=== PATIENT | female | born 1990 | race Caucasian/White ===

== ENCOUNTER 2016-10-03 00:25 | Inpatient (IN) | payer BC, MEDICAID, OTHER ==
[~2016-10-03] VITALS: Ht 162.6 cm; Wt 107.5 kg
[~2016-10-03 00:25] MED LIST: IBUP-1542 PO; LANT3I SC; NOVO3I SC
[2016-10-03 00:32] VITALS: Ht 162.6 cm; Wt 107.5 kg
[2016-10-03] MEDS ORDERED: SOD CHLORIDE 0.9% 1,000 ML IV STA (01:48)
[2016-10-03] MEDS ORDERED: ACETAMINOPHEN 325 MG TAB PO ONE ×2 (02:00→20:30)
--- NOTE | 2016-10-03 02:48 | ERD ---
ER Documentation Chief Complaint Date/Time DATE: 10/03/16 TIME: 02:46 Chief Complaint abscess left inguinal area HPI 26-year-old female presents here in emergency department for complaints of a possible abscess in the left inguinal area, but had it for the last week, it got more swollen and was able to drain pustular discharge today. Patient is complaining of left lower quadrant pain where the abscess is, throbbing pain, succession scale, is worse with touching the area. Patient started to have fever today. Patient also has had irregular period, had 2 menstruation in July , has never had a menstruation afterwards, today, she passed out some tissue. She does not know she is . Patient denies any hematuria or dysuria. Patient states that she has light vaginal bleeding today, has not soaked any pads. ROS All systems reviewed and are negative except as per history of present illness. Medications Home Meds Active Scripts Ibuprofen* (Motrin*) 600 Mg Tab, 600 MG PO Q6, #30 TAB Prov:LEONEL JOHNSON PA-C 09/23/15 Reported Medications Insulin Aspart* (Novolog Insulin Pen*) 100 Unit/Ml Soln, 10 UNIT SC TID AC, EA 03/24/16 Insulin Glargine* (Lantus*) 100 Unit/Ml Soln, 15 UNIT SC QHS, #1 VIAL 03/24/16 Allergies Allergies: Coded Allergies: No Known Drug Allergies (Verified Allergy, Unknown, 03/24/16) PMhx/Soc History of Surgery: No Anesthesia Reaction: No Hx Neurological Disorder: No Hx Respiratory Disorders: No Hx Cardiac Disorders: No Hx Psychiatric Problems: No Hx Miscellaneous Medical Probl: Yes (dm) Hx Alcohol Use: No Hx Substance Use: No Hx Tobacco Use: No Smoking Status: Never smoker FmHx Family History: No coronary disease, No diabetes, No other Physical Exam Vitals Vital Signs Date Time Temp Pulse Resp B/P Pulse Ox O2 Delivery O2 Flow Rate FiO2 10/03/16 05:08 99.6 96 16 113/55 98 Room Air 10/03/16 00:32 101.3 127 20 125/63 97 Physical Exam GENERAL: The patient is well developed and appropriate for usual state of health, in no apparent distress. CHEST: Clear to auscultation bilaterally. There are no rales, wheezes or rhonchi. HEART: Regular rate and rhythm. No murmurs, clicks, rubs or gallops. No S3 or S4. ABDOMEN: Soft, nontender and nondistended. Good bowel sounds. No rebound or guarding. No gross peritonitis. No gross organomegaly or masses. No Allen sign or McBurney point tenderness. BACK: No midline or flank tenderness. EXTREMITIES: Equal pulses bilaterally. There is no peripheral clubbing, cyanosis or edema. No focal swelling or erythema. Full range of motion. Grossly neurovascularly intact. NEURO: Alert and oriented. Cranial nerves 2-12 intact. Motor strength in all 4 extremities with 5/5 strength. Sensation grossly intact. Normal speech and gait. SKIN: Noted 3 cm erythematous indurated area on the left inguinal area with mild redness around it area, draining purulent discharge. There is no apparent ecchymosis and or petechia. The skin is warm and dry. HEMATOLOGIC AND LYMPHATIC: There is no evidence of excessive bruising or lymphedema. No gross cervical, axillary, or inguinal lymphadenopathy.. VAGINAL: Small amount of blood in the vaginal vault, the cervical os is closed. No tenderness or cervical motion tenderness noted. Result Diagram: 10/03/16 02110/03/16 0210 Results 24 hrs Laboratory Tests Test 10/03/16 02:09 10/03/16 02:10 Urine Color LT. YELLOW Urine Clarity CLEAR Urine pH 5.5 Urine Specific [place] 1.015 Urine Ketones 3+ Urine Nitrite NEGATIVE Urine Bilirubin NEGATIVE Urine Urobilinogen 0.2 E.U./dL Urine Leukocyte Esterase NEGATIVE Urine Microscopic RBC 2-5/HPF Urine Microscopic WBC 0-2/HPF Urine Squamous Epithelial Cells MODERATE Urine Bacteria MODERATE Urine Hemoglobin 3+ Urine Glucose >=1000% Urine Total Protein NEGATIVE White Blood Count 17.210^3/ul Red Blood Count 4.5610^6/ul Hemoglobin 13.9g/dl Hematocrit 39.9% Mean Corpuscular Volume 87.5fl Mean Corpuscular Hemoglobin 30.5pg Mean Corpuscular Hemoglobin Concent 34.8g/dl Red Cell Distribution Width 12.3% Platelet Count 26872^3/UL Mean Platelet Volume 12.2fl Neutrophils % 85.8% Lymphocytes % 6.3% Monocytes % 6.8% Eosinophils % 0.0% Basophils % 0.1% Nucleated Red Blood Cells % 0.0/100WBC Neutrophils # 14.810^3/ul Lymphocytes # 1.110^3/ul Monocytes # 1.210^3/ul Eosinophils # 0.010^3/ul Basophils # 0.010^3/ul Nucleated Red Blood Cells # 0.010^3/ul Sodium Level 135mmol/L Potassium Level 4.0mmol/L Chloride Level 101mmol/L Carbon Dioxide Level 23mmol/L Anion Gap 15 Blood Urea Nitrogen 8mg/dl Creatinine 0.66mg/dl Glucose Level 303mg/dl Calcium Level 9.0mg/dl Total Bilirubin 0.6mg/dl Direct Bilirubin 0.00mg/dl Indirect Bilirubin 0.6mg/dl Aspartate Amino Transf (AST/SGOT) 24IU/L Alanine Aminotransferase (ALT/SGPT) 53IU/L Alkaline Phosphatase 108IU/L Total Protein 6.7g/dl Albumin 4.2g/dl Globulin 2.50g/dl Albumin/Globulin Ratio 1.68 Lipase 100U/L Beta HCG, Quantitative 343.8mIU/ml Current Medications Medications (Trade) Dose Ordered Sig/Jair Route PRN Reason Start Time Stop Time Status Last Admin Dose Admin Sodium Chloride (NS) 1,000 ml @ 1,000 mls/hr Q1H STAT IV 10/03/16 01:48 10/03/16 02:47 DC 10/03/16 02:37 Acetaminophen (Tylenol Tab) 650 mg ONCE ONCE PO 10/03/16 02:00 10/03/16 02:01 DC 10/03/16 02:37 Morphine Sulfate (morphine) 6 mg ONCE ONCE IV 10/03/16 04:30 10/03/16 04:31 DC 10/03/16 04:26 Ondansetron HCl (Zofran Inj) 4 mg ONCE ONCE IV 10/03/16 04:22 10/03/16 04:23 DC 10/03/16 04:26 Sodium Chloride (NS) 3,330 ml BOLUS OVER 2 HOURS STAT IV* 10/03/16 05:20 10/03/16 05:25 DC PROCEDURE: ULTRASOUND PELVIS CLINICAL INDICATION: 26-year-old female with vaginal bleeding. TECHNIQUE: Multiple sonographic images of the pelvis were obtained utilizing a transabdominal and endovaginal technique. The images were reviewed on a PACS workstation. COMPARISON: None. FINDINGS: The uterus is visualized and measures 10.4 x 5.0 x 5.4 cm. The endometrial echo complex is within normal limits and measures 0.7 mm. There is no sonographic evidence for an intrauterine gestation. There is no evidence for free fluid. The right ovary has a normal echotexture and measures 2.2 x 1.5 x 1.6 cm. The left ovary has a normal echotexture and measures 2.7 x 1.4 x 2.2 cm. There is flow identified within the ovaries bilaterally. No adnexal masses are noted. IMPRESSION: No sonographic evidence for an intrauterine gestation. If the patient has a positive test, an ectopic cannot be excluded. Clinical correlation is necessary. .William Medina MD, MD Date Time Electronically viewed and signed by .William Medina MD, MD on 10/03/2016 04:00 .M/ CC: CATIA LLOYD NP Normal saline IV bolus was given here in emergency department for rehydration, patient tolerated IV fluids.Patient was given medicines for fever control here in the emergency department. After treatment, patient temperature improved and lower. Patient appears well and is hemodynamically stable. PROCEDURE: ULTRASOUND LEFT LOWER ABDOMINAL SOFT TISSUE. CLINICAL INDICATION: 26-year-old female with left lower abdominal wall cyst pain and swelling. TECHNIQUE: Limited sonographic images of the left inguinal and suprapubic regions was performed utilizing a linear ray transducer and color flow imaging. The images were reviewed on a high-resolution PACS workstation. COMPARISON: None. FINDINGS: There is diffuse increase echogenicity suggestive of edema. There is a focal fluid collection within the suprapubic region measuring 12 x 10 x 7 mm. IMPRESSION: Small suprapubic fluid collection suggestive of an abscess. .William Medina MD, MD Date Time Electronically viewed and signed by .William Medina MD, MD on 10/03/2016 03:59 .M/ CC: CATIA LLOYD NP She passed the tissue, and has a very low beta hCG quantitative, consistent with spontaneous , I discussed this case with the patient, patient was a CT scan abdomen and pelvis with IV contrast for further evaluation and further examination of her abdomen since she is in so much pain and has an abscess on affected area and has a fever. Patient consented to have the CT scan abdomen and pelvis at this time. PROCEDURE: CT ABDOMEN/PELVIS WITH CONTRAST CLINICAL INDICATION: 26-year-old female with left lower quadrant pain. TECHNIQUE: The study was performed utilizing a [employer] 64-slice CT scanner. Direct axial sections were obtained through the abdomen and pelvis with the use of 100 cc of Omnipaque-300 nonionic intravenous contrast material. Sagittal and coronal reformations were obtained. One or more of the following dose reduction techniques were utilized: automated exposure control, adjustment of the mA and/or kV according to patient's size or use of iterative reconstruction technique. The images were reviewed on a PACS workstation. CTD/ vol = 22.8 mGy; Total Exam DLP = 1475.2 mGy-cm. COMPARISON: CT abdomen/pelvis September 23, 2015; ultrasound pelvis October 03, 2016. FINDINGS: The lung bases are unremarkable. There is no evidence for significant pleural effusion. The liver has a normal size and contour. There is marked diffuse decreased density throughout the liver consistent with fatty infiltration but without focal areas of abnormal density or contrast enhancement. No intrahepatic nor extrahepatic biliary ductal dilatation is seen. The gallbladder demonstrates no wall thickening nor pericholecystic fluid. No biliary stones are evident. The pancreas is without areas of abnormal attenuation or contrast enhancement. This spleen is identified and has a normal size without abnormal density or contrast enhancement. The adrenal glands are unremarkable. The kidneys are functional bilaterally without abnormal density. No hydroureteronephrosis nor nephroureterolithiasis is evident. The urinary bladder contains urine. There is mild retained stool within the ascending and transverse colon without obstruction. The appendix is visualized and is without edema or surrounding inflammatory reaction. The uterus is unremarkable. There is no significant pelvic free fluid. There is diffuse infiltration of the left lower quadrant abdominal/pelvic wall and inguinal soft tissues without evidence for a focal fluid collection. Shotty bilateral inguinal lymph nodes are seen. The aortoiliac vessels are without aneurysmal dilatation. The osseous structures are intact. IMPRESSION: 1. Diffuse fatty infiltration of the liver. 2. Mild retained stool without obstruction. 3. No CT evidence for appendicitis. 4. Diffuse soft tissue infiltration within the left lower quadrant abdominal/ pelvic wall and inguinal regions suggestive of a cellulitis. Clinical correlation is necessary. .William Medina MD, MD Date Time Electronically viewed and signed by .William Medina MD, MD on 10/03/2016 05:12 .M/ CC: CATIA LLOYD NP Procedures/MDM Medical Decision Making: Patient has a deep tissue infection cellulitis possible extending to the pelvic wall and left lower quadrant abdomen area, considering patient is diabetic, patient will be admitted to the hospital for IV antibiotics, possible treatment. Patient presented with signs and symptoms of sepsis but source of sepsis was unable to be recognize until results of the CT scan abdomen and pelvis with IV contrast at 0512, which was done after confirming that the patient is not . There is no deep tissue abscess that needed to be drained at this time. She was transferred to ER 1, patient was given IV fluids as well as 30 mg/kg, lactic was ordered, but cultures were ordered. Initial antibiotics were ordered. Dr. eMyer will facilitate patient' s admission to the hospital Departure Diagnosis: Primary Impression: Cellulitis Site of cellulitis: unspecified site Qualified Code: L03.90 - Cellulitis, unspecified cellulitis site Additional Impression: Spontaneous Condition: Fair CATIA LLOYD NP Oct 03, 2016 02:48
[2016-10-03 02:53] LABS: ADD SCAN DIFF NO
[2016-10-03 03:00] LABS: BASOPHILS % 0.1 % (0.0-2.0); HEMATOCRIT 39.9 % (37.0-47.0); HEMOGLOBIN 13.9 g/dl (12.0-16.0); LYMPHOCYTES # 1.1 10^3/ul (0.8-2.9); LYMPHOCYTES % 6.3 % (15.0-51.0); MEAN CORPUSCULAR HEMOGLOBIN 30.5 pg (29.0-33.0); MEAN CORPUSCULAR HGB CONC 34.8 g/dl (32.0-37.0); MEAN CORPUSCULAR VOLUME 87.5 fl (82.0-101.0); MEAN PLATELET VOLUME 12.2 fl (7.4-10.4); MONOCYTE # 1.2 10^3/ul (0.3-0.9); MONOCYTES % 6.8 % (0.0-11.0); NEUTROPHIL # 14.8 10^3/ul (1.6-7.5); NEUTROPHILS % 85.8 % (39.0-77.0); PLATELET COUNT 147 10^3/UL (140-415); RED BLOOD COUNT 4.56 10^6/ul (4.20-5.40); RED CELL DISTRIBUTION WIDTH 12.3 % (11.5-14.5); WHITE BLOOD COUNT 17.2 10^3/ul (4.8-10.8)
[2016-10-03 03:02] LABS: ADD UMIC YES; UR BILIRUBIN (Dip) NEGATIVE (NEGATIVE); UR BLOOD (Dip) 3+ (NEGATIVE); UR CLARITY CLEAR (CLEAR); UR COLOR LT. YELLOW (YELLOW); UR GLUCOSE (Dip) >=1000 % (NEGATIVE); UR KETONES (Dip) 3+ (NEGATIVE); UR LEUKOCYTE ESTERASE (Dip) NEGATIVE (NEGATIVE); UR NITRITE (Dip) NEGATIVE (NEGATIVE); UR TOTAL PROTEIN (Dip) NEGATIVE (NEGATIVE); UR UROBILINOGEN (Dip) 0.2 E.U./dL (0.1-1.0)
[2016-10-03 03:25] LABS: ALBUMIN 4.2 g/dl (3.3-4.9); ALBUMIN/GLOBULIN RATIO 1.68; BILIRUBIN,INDIRECT 0.6 mg/dl (0-1.1); BILIRUBIN,TOTAL 0.6 mg/dl (0.2-1.3); CREATININE 0.66 mg/dl (0.44-1.00); TOTAL PROTEIN 6.7 g/dl (6.1-8.1)
--- NOTE | 2016-10-03 03:59 | RADRPT ---
PROCEDURE: ULTRASOUND LEFT LOWER ABDOMINAL SOFT TISSUE. CLINICAL INDICATION: 26-year-old female with left lower abdominal wall cyst pain and swelling. TECHNIQUE: Limited sonographic images of the left inguinal and suprapubic regions was performed ut ilizing a linear ray transducer and color flow imaging. The images were reviewed on a high-resoluti on PACS workstation. COMPARISON: None. FINDINGS: There is diffuse increase echogenicity suggestive of edema. There is a focal fluid collection withi n the suprapubic region measuring 12 x 10 x 7 mm. IMPRESSION: Small suprapubic fluid collection suggestive of an abscess. .William Medina MD, MD Date Time Electronically viewed and signed by .William Medina MD, on 10/03/2016 03:59 .Virid[place]/
--- NOTE | 2016-10-03 04:01 | RADRPT ---
PROCEDURE: ULTRASOUND PELVIS CLINICAL INDICATION: 26-year-old female with vaginal bleeding. TECHNIQUE: Multiple sonographic images of the pelvis were obtained utilizing a transabdominal and endovaginal technique. The images were reviewed on a PACS workstation. COMPARISON: None. FINDINGS: The uterus is visualized and measures 10.4 x 5.0 x 5.4 cm. The endometrial echo complex is within no rmal limits and measures 0.7 mm. There is no sonographic evidence for an intrauterine gestation. Th ere is no evidence for free fluid. The right ovary has a normal echotexture and measures 2.2 x 1.5 x 1.6 cm. The left ovary has a normal echotexture and measures 2.7 x 1.4 x 2.2 cm. There is flow id entified within the ovaries bilaterally. No adnexal masses are noted. IMPRESSION: No sonographic evidence for an intrauterine gestation. If the patient has a positive test , an ectopic cannot be excluded. Clinical correlation is necessary. .William Medina MD, MD Date Time Electronically viewed and signed by .William Medina MD, MD on 10/03/2016 04:00 .M/
[2016-10-03] MEDS ORDERED: ONDANSETRON 4 MG INJ IV ONE (04:22)
[2016-10-03] MEDS ORDERED: morphine 10 MG INJ IV ONE (04:30)
[2016-10-03] MEDS ORDERED: IOHEXOL 300MG/ML 150 ML BTL ONE (04:35)
[2016-10-03] MEDS ORDERED: SOD CHLORIDE 0.9% 100 ML ONE (04:35)
[2016-10-03 05:07] LABS: UR BACTERIA MODERATE; UR SQUAMOUS EPITHELIAL CELL MODERATE
--- NOTE | 2016-10-03 05:12 | RADRPT ---
PROCEDURE: CT ABDOMEN/PELVIS WITH CONTRAST CLINICAL INDICATION: 26-year-old female with left lower quadrant pain. TECHNIQUE: The study was performed utilizing a [employer] V[employer] 64-slice CT scanner. Direct axia l sections were obtained through the abdomen and pelvis with the use of 100 cc of Omnipaque-300 michael onic intravenous contrast material. Sagittal and coronal reformations were obtained. One or more of the following dose reduction techniques were utilized: automated exposure control, adjustment of the mA and/or kV according to patient's size or use of iterative reconstruction technique. The images were reviewed on a PACS workstation. CTD/vol = 22.8 mGy; Total Exam DLP = 1475.2 mGy-cm. COMPARISON: CT abdomen/pelvis September 23, 2015; ultrasound pelvis October 03, 2016. FINDINGS: The lung bases are unremarkable. There is no evidence for significant pleural effusion. The liver has a normal size and contour. There is marked diffuse decreased density throughout the liver consi stent with fatty infiltration but without focal areas of abnormal density or contrast enhancement. N o intrahepatic nor extrahepatic biliary ductal dilatation is seen. The gallbladder demonstrates no w all thickening nor pericholecystic fluid. No biliary stones are evident. The pancreas is without are as of abnormal attenuation or contrast enhancement. This spleen is identified and has a normal size without abnormal density or contrast enhancement. The adrenal glands are unremarkable. The kidneys are functional bilaterally without abnormal density. No hydroureteronephrosis nor nephroureterolithi asis is evident. The urinary bladder contains urine. There is mild retained stool within the ascendi ng and transverse colon without obstruction. The appendix is visualized and is without edema or surrounding inflammatory reaction. The uterus is unremarkable. There is no significant pelvic free fluid. There is diffuse infiltration of the left lower quadrant abdominal/pelvic wall and inguinal s oft tissues without evidence for a focal fluid collection. Shotty bilateral inguinal lymph nodes a re seen. The aortoiliac vessels are without aneurysmal dilatation. The osseous structures are intac t. IMPRESSION: 1. Diffuse fatty infiltration of the liver. 2. Mild retained stool without obstruction. 3. No CT evidence for appendicitis. 4. Diffuse soft tissue infiltration within the left lower quadrant abdominal/pelvic wall and inguin al regions suggestive of a cellulitis. Clinical correlation is necessary. .William Medina MD, MD Date Time Electronically viewed and signed by .William Medina MD, MD on 10/03/2016 05:12 .M/
[2016-10-03] MEDS ORDERED: SODIUM CHLORIDE 0.9% 1L BAG IV* STA (05:20)
[2016-10-03] MEDS ORDERED: PIPER-TAZO 3.375 GM IV (PMX) 100 ML IVPB ONE (05:30)
[2016-10-03] MEDS ORDERED: VANCOMYCIN 1 GM (PMX) 250 ML IVPB ONE (05:30)
[2016-10-03 05:37] LABS: INR 1.03; PROTIME 13.5 Sec (12.2-14.2); PT RATIO 1.1
[2016-10-03 05:38] LABS: PARTIAL THROMBOPLASTIN TIME 28.5 Sec (25.0-35.0)
--- NOTE | 2016-10-03 06:01 | RADRPT ---
PROCEDURE: CHEST - 1 VIEW CLINICAL INDICATION: 26-year-old female with shortness of breath and sepsis. TECHNIQUE: A single frontal AP portable view of the chest was performed. The images were reviewed on a PACS workstation. COMPARISON: CT abdomen/pelvis October 03, 2016. FINDINGS: The cardiomediastinal silhouette has a normal appearance. There is a shallow inspiration. There is mild bibasilar subsegmental atelectasis. There is no evidence for an infiltrate. The pulmonary vasc ularity is within normal limits. There is no evidence for pneumothorax or pneumomediastinum. The oss eous structures are intact. IMPRESSION: Shallow inspiration with mild bibasilar subsegmental atelectasis. .William Medina MD, Date Time Electronically viewed and signed by .William Medina MD, on 10/03/2016 06:01 .Viridiana/
[2016-10-03] MEDS ORDERED: morphine 4 MG/ML VIAL IV STA (06:42)
[2016-10-03] MEDS ORDERED: VANCOMYCIN IV PER PHARMACY XX SCH (10:00)
[2016-10-03] MEDS ORDERED: ONDANSETRON 4 MG INJ IV PRN (10:00)
[2016-10-03] MEDS ORDERED: NACL 0.9% 3 ML SYG IV SCH (10:00)
[2016-10-03] MEDS: HYDROCODONE/APAP (5/325) TAB PO PRN (10:21)
[2016-10-03 10:26] VITALS: TEMP 103
[2016-10-03] MEDS: ACETAMINOPHEN 325 MG TAB PO PRN ×2 (10:30→16:48)
[2016-10-03 10:56] VITALS: BP 107/58; PULSE 115; RESP 20
[2016-10-03] MEDS ORDERED: VANCOMYCIN 1 GM in NS 250 ML IVPB SCH (11:30)
[2016-10-03] MEDS: SOD CHLORIDE 0.9% 1,000 ML IV SCH ×3 (11:46→23:50)
[2016-10-03] MEDS ORDERED: GLUCOSE GEL 15 GRAM TUBE BUCCAL PRN (12:00)
[2016-10-03] MEDS ORDERED: GLUCOSE GEL 15 GRAM TUBE PO PRN ×2 (12:00)
[2016-10-03] MEDS ORDERED: GLUCAGON 1 MG INJ IM PRN (12:00)
[2016-10-03] MEDS ORDERED: DEXTROSE 50% 50 ML SYRINGE IV PRN ×2 (12:00)
--- NOTE | 2016-10-03 12:43 | HP ---
DATE OF ADMISSION: 10/03/2016 REASON FOR ADMISSION: Abscess in the left inguinal area, passed out tissue from the vagina. CONSULTANTS: 1. Thomas Milan MD, infectious disease. 2. Levi Sepulveda MD, general surgery. 3. EKG MONITOR clinical operations specialist. HISTORY OF PRESENT ILLNESS: This is a 26-year-old female with past medical history of type 2 diabetes and morbid obesity, who came to the emergency room with a chief complaint of left groin area and perineal redness with a small lesion in the perineal area that spontaneously drained out fluid. The patient verbalized that she has been having fevers and left groin area erythema since 09/30/2016. The patient tried [id number] Tylenol and ibuprofen with minimal relief. The patient also passed out some tissue today while she went to the restroom, and she collected it and brought to the hospital. The patient was having irregular menstrual periods. The patient was unaware that if she was . The patient was also complaining of some left thigh pain and left lower quadrant abdominal pain. The patient denied any diarrhea. She denied any nausea or vomiting. She denied any dysuria, hematuria , frequency or urgency. In the emergency room, the patient was noticed to have a leukocytosis with a WBC of 17.2. The patient was febrile with a temperature of 101.3 in the emergency room. The patient underwent a CT scan of the abdomen and pelvis that showed diffuse soft tissue infiltration within the left lower quadrant and abdominopelvic wall and inguinal regions suggestive of cellulitis. The patient was noticed to have a beta hCG of 343.8. The patient underwent an obstetrical ultrasound that showed no evidence of any intrauterine gestation. The patient underwent a soft tissue ultrasound that showed a small suprapubic fluid collection suggestive of an abscess. She was treated with IV vancomycin and IV Zosyn in the emergency room along with analgesics. PAST MEDICAL HISTORY: Obesity, type 2 diabetes mellitus. PAST SURGICAL HISTORY: Denies. HOME MEDICATIONS: Janumet, dose unknown, b.i.d. ALLERGIES: NO KNOWN DRUG ALLERGIES. SOCIAL HISTORY: The patient lives at home with her family. She works as a [employer]. Has 2 kids. No use of tobacco, alcohol or illicit drugs. REVIEW OF SYSTEMS: A 12-point review of systems were made and the review of systems were negative other than what is mentioned in history of present illness. PHYSICAL EXAMINATION: VITAL SIGNS: Temperature 103.0, pulse rate 115, respiratory rate 20, blood pressure 107/58, oxygen saturation 96% on room air. GENERAL: This is a morbidly obese female lying in bed in no apparent distress. HEENT: Head normocephalic and atraumatic. Eyes: Anicteric sclerae. Conjunctivae clear. ENT: Nasal septum is midline. Oral mucosa is dry. NECK: Short and obese. RESPIRATORY: Bilaterally diminished breath sounds. No adventitious breath sounds heard. No use of accessory muscles of respiration. CARDIAC: Regular rate and rhythm. S1, S2 heard. ABDOMEN: Soft. Tenderness in the left lower quadrant. Bowel sounds hypoactive in all 4 quadrants. GENITOURINARY: The patient has suprapubic erythema and tenderness with an orifice in the mons pubis, not draining any fluid at this time. Left inguinal area erythema with tenderness. EXTREMITIES: No cyanosis, no clubbing, no edema. Peripheral pulses palpable. NEUROLOGIC: The patient is awake, alert and oriented. Cranial nerves are grossly intact. LABORATORY AND DIAGNOSTIC DATA: WBC 17.2, hemoglobin 13.9, hematocrit 39.9, platelet count 147. Sodium 137, potassium 4.0, chloride 101, carbon dioxide 23 , anion gap 15, BUN 8, creatinine 0.66, glucose 303, calcium 9.0. AST 24, ALT 53, alkaline phosphatase 108. Beta hCG 343. PT 13.5, INR 1.03, APTT 28.0. Urinalysis: Urine nitrite negative, urine leukocyte esterase negative, urine hemoglobin 3+, urine glucose greater than 1000. Urine total protein negative. Chest x-ray. Shallow inspiration with mild bibasilar subsegmental atelectasis. CT scan abdomen and pelvis. Diffuse fatty infiltration of the liver. Mild retained stool without obstruction. No CT evidence for appendicitis. Diffuse soft tissue infiltration within the left lower quadrant abdominal/pelvic wall and inguinal regions suggestive of cellulitis Obstetric ultrasound. No sonographic evidence for intrauterine gestation. Soft tissue ultrasound. Small suprapubic fluid collection suggestive of an abscess. IMPRESSION: This is a 26-year-old female with morbid obesity and type 2 diabetes mellitus who came to the emergency room with the chief complaint of draining perineal abscess with left groin area erythema along with febrile illness, who was found to have evidence of sepsis, will be admitted here for further treatment and evaluation. ASSESSMENT AND PLAN: 1. Sepsis secondary to underlying suprapubic abscess. The patient will be continued on empiric antibiotics. Pancultures will be ordered. The patient has no evidence of any septic shock. 2. Suprapubic abscess. A general surgery consult will be called on this patient. A wound culture will be ordered on this patient. 3. Abdominal wall cellulitis. The patient will be continued on empiric antibiotics. Infectious disease will follow the patient. 4. Elevated beta hCG with suspected expelled products of conception. EKG MONITOR consult will be obtained. The patient's beta hCG will be trended. The patient' s obstetric ultrasound is negative for any intrauterine gestation. 5. Type 2 diabetes mellitus. The patient will started on sliding scale insulin along with Lantus insulin and premeal insulin. Hemoglobin A1c will be obtained to evaluate the blood glucose control over the past few weeks. 6. Morbid obesity. BMI of 40.7 kg/meter squared. A fasting lipid panel will be obtained. A dietary consult will be obtained. Weight reduction will be advised. Plan. The patient will be admitted to inpatient medical/surgical floor. The patient will be started on a carbohydrate controlled diet. The patient will be started on DVT prophylaxis and gastrointestinal prophylaxis. The patient will remain FULL CODE. Activities will be as tolerated. The rest of the patient's management will be based on the clinical course, the results of diagnostic studies and inputs from consultants. Based on the patient's clinical presentation, she most probably requires at least 2 midnights' stay for further management and evaluation of her clinical presentation. The case and management of this patient was fully discussed with Dr. eBarden. HERMILA BEARDEN MD, AM/SYLVIA Conf#: [id number] DID#: [id number] MTDD
[2016-10-03] MEDS: morphine 2 MG INJ IV PRN (13:28)
[2016-10-03] MEDS: INSULIN ASPART [NOVOLOG] 3 ML PEN SC SCH ×5 (13:31→21:23)
--- NOTE | 2016-10-03 13:49 | CONS ---
DATE OF ADMISSION: 10/03/2016 DATE OF CONSULTATION: 10/03/2016 TYPE OF CONSULTATION: Surgical REASON FOR CONSULTATION: Abdominal wall cellulitis. HISTORY OF PRESENT ILLNESS: The patient is a morbidly obese 26-year-old female with a past medical history of type 2 diabetes who presented to the emergency room complaining of left-sided ab dominal wall and inguinal pain. This had been present for the last week, but starting 3 days ago be came more intense in nature. Yesterday, she started reporting some purulent drainage from her supra pubic area. She had tried [id number] medicines without any relief. She also reports passing some drainage from her vaginal area. On arrival to the emergency room, she was found to be febrile with a leukocytosis of 17,200. Currently, she states she feels a little bit better. She has been s tarted on IV antibiotics. PAST MEDICAL HISTORY: Morbid obesity, type 2 diabetes. PAST SURGICAL HISTORY: Negative. MEDICATIONS: Please refer to medication reconciliation. ALLERGIES: NO KNOWN DRUG ALLERGIES. REVIEW OF SYSTEMS: A 14-point review of systems was conducted and was negative except for that whic h was mentioned in the HPI. PHYSICAL EXAMINATION: VITAL SIGNS: Temperature max is 103.0, T-current 98.2, pulse 115, respirations 20, blood pressure 1 07/58, O2 saturation is 96% on room air. GENERAL APPEARANCE: She is an obese female who is awake, alert, and oriented x3 and in no acute distress at this time. HEENT: Pupils are equal and reactive to light and accommodation. Extraocular muscles are intact. NECK: Supple without JVD. CARDIOVASCULAR: S1, S2, regular rate and rhythm. No murmurs appreciated. RESPIRATORY: Clear to auscultation bilaterally. ABDOMEN: Soft. Bowel sounds are present. There is some mild erythema and cellulitis which extends to the left flank also involving the left groin. In the left suprapubic area and mons pubis, there is a 5 mm punctate area of ulceration which on expression drains some purulent fluid. There is no fluctuance. There is no erythema over this area. EXTREMITIES: Her extremities do not exhibit any signs of cyanosis, edema or clubbing. LABORATORY WORK: Shows white blood cell count of 17.2, hemoglobin 13.9, platelet count 147. Sodium 135, potassium 4.0, chloride 101, bicarbonate 23, BUN 8, creatinine 0.66, glucose 303. Albumin 4.2 , total bilirubin 0.6, alkaline phosphatase 108, AST 24, ALT 53, lipase 100. INR 1.03. IMAGING STUDIES: A CT scan of the abdomen and pelvis shows diffuse fatty infiltration of the liver with mild retained stool without obstruction. There is no evidence for appendicitis. There is diff use soft tissue infiltration within the left lower quadrant abdominal wall and inguinal region sugge stive of cellulitis. There is no drainable abscess. RECOMMENDATIONS: This is a morbidly obese 26-year-old female with left-sided abdominal wall celluli tis. There is no drainable collection on CT scan. On physical exam, I was able to express a mild amount of purulent drainage. This is spontaneously draining, and I do not think it necessitates incision a nd drainage at this time. I would apply warm compress to the area. Continue broad-spectrum intrave nous antibiotics. Tight blood sugar control it is critical for healing. Weight loss should be advi sed for the patient's morbid obesity. There was elevated beta hCG and a question of whether the pat ient is currently or has suffered a miscarriage. CARPET MEASURER consult is recommended. The above was discussed with the patient and the primary care team in detail. Further recommendatio ns will be made based on the patient's clinical course. Dictated By: BRUNO MORALES/SYLVIA Conf#: [id number] DID#: [id number]
[2016-10-03] MEDS: PIPER-TAZO 3.375 GM IV (PMX) 100 ML IVPB SCH ×2 (16:48→21:25)
[2016-10-03] MEDS ORDERED: INSULIN GLARGINE [LANtus] 3 ML PEN SC SCH (20:00)
[2016-10-03 20:46] VITALS: BP 117/67; RESP 20
--- NOTE | 2016-10-03 21:06 | CONS ---
Date/Time of Note Date/Time of Note DATE: 10/03/16 TIME: 20:48 Assessment/Plan Assessment/Plan Chief Complaint/Hosp Course 26-year-old female with cellulitis on the left mons pubis area as well as left lower abdomen currently undergoing treatment with broad-spectrum IV antibiotics including Zosyn and vancomycin, as well as hot compresses. Pus is draining from a small opening in the left upper side of months. She has been currently afebrile. White count dropping, shows clinical response. Past history of type 2 diabetes, currently on insulin and oral meds. Management of diabetes by primary care medicine team Amenorrhea for 7 weeks, none confirmed IUP, patient had not been evaluated by OUT OF TOWN COLLECTION CLERK nor had any ultrasound to confirm early IUP. Had subsequently vaginal bleeding and passing some tissue brought the tissue to the hospital and per patient was sent to pathologist., Ultrasound currently does not show any evidence of IUP or ectopic and essentially is nondiagnostic Serum hCG 337. possible early SAB however ectopic cannot be ruled out. Discussed with the patient regarding repeating serum hCG after 24 hours if the level drops 52% or more bad consistent with, early miscarriage patient at that point can have. follow-up after discharge from the hospital with her compensation consultant with repeat hCG in 2 weeks , to confirm termination of current episode of . Patient has diabetes, per her blood sugar looks like it is poorly controlled. Discussed increased risk of miscarriage in future pregnancies due to uncontrolled diabetes. Recommended the patient to seek and reliable control prior to strict blood sugar control prior to next . Increased risk of miscarriage and complication of with poorly controlled diabetes discussed with the patient in detail. Currently patient hemodynamically stable. HCG was ordered for 24 hours. Patient was notified that she will be seen by another OB hospitalist tomorrow for follow-up of the labs and final plan. Continue warm compress of the abscess, continue antibiotics, follow-up with culture of abscess. Consider MRSA culture if not done yet Thank you for allowing me to participate in this patient's care Problems: Consultation Date/Type/Reason Admit Date/Time Oct 03, 2016 at 05:27 Date of Consultation: Oct 03, 2016 Type of Consultation: OUT OF TOWN COLLECTION CLERK Reason for Consultation Miscarriage vs Ectopic 26-year-old presented to the hospital due to increase in the size of abscess of the left lower abdomen wall as vaginal bleeding after amenorrhea for 7 weeks. Patient's symptoms started with an abscess in the left sided lower abdomen about a week ago that was a small and gradually increase in the size. She also subsequently developed a fever of 101-103 with drainage from the abscess couple days after increasing in the size. Patient also reports amenorrhea for 7 weeks and started having spotting 3 4 days ago and bleeding gradually increased and she passed the tissue similar to the fetus. Patient had experienced miscarriages in the past and she feels that she passed the fetus. She had not seen any java lead or compensation consultant for amenorrhea. She was unaware of . She had a history of miscarriage in March of last year at 15 weeks which she passed a larger fetus. Patient reports 5 out of 10 pain in the lower abdomen. She admitted to medicine service after she was noted to have cellulitis of the mons pubis and lower abdomen. Currently on Vanco and Zosyn. Past medical history significant for history of diabetes. Patient was on oral hypoglycemic medication. Her blood sugar during this hospitalization is elevated. She is currently being treated for cellulitis with broad-spectrum antibiotics and management of blood sugar also been performed by primary team medicine. OUT OF TOWN COLLECTION CLERK was consulted to evaluate this patient due to positive test and amenorrhea as well as vaginal bleeding. Her serum hCG was 337. Ultrasound in the hospital did not show any evidence of IUP , but was significant for a small right adnexal cyst. Patient reports decreased pain since he was admitted in the hospital. She denies currently any fever or chills. She denies any vaginal bleeding. She reports pain in the left lower abdomen in the area of cellulitis radiating toward the lower back. She has been doing warm compress of the cellulitis and reports increased drainage. Subjective hx not possible: other (Alert and oriented, verbal and historian) Constitutional: no complaints Eyes: no complaints ENT: no complaints Respiratory: no complaints Gastrointestinal: no complaints Genitourinary: bleeding Musculoskeletal: no complaints Skin: no complaints Neurologic: no complaints Endocrine: polyuria Lymphatic: no complaints Psychological: no complaints Immunologic: no complaints Past Medical History Past medical history: Type 2 diabetes since 2009. 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 She was unaware of current . She denies any prior history of abnormal Pap smear or any gynecologic problem in the past Past Surgical History Past Surgical Hx: no surgical history Family History Significant Family History: no pertinent family hx Social History Denies a smoking, drinking alcohol or using any drugs Alcohol Use: none Smoking Status: Never smoker Drug Use: none Exam/Review of Systems Vital Signs Vitals Vital Signs Date Time Temp Pulse Resp B/P Pulse Ox O2 Delivery O2 Flow Rate FiO2 10/03/16 20:46 102.3 111 20 117/67 98 10/03/16 10:56 Room Air Exam Constitutional: alert, obese, oriented, well developed Psych: nl mood/affect, no complaints Head: atraumatic, normocephalic Eyes: EOMI, nl conjunctiva, nl lids ENMT: nl external ears & nose, nl lips & teeth Neck: supple Respiratory: clear to auscultation, normal air movement Cardiovascular: nl pulses, regular rate and rhythm Gastrointestinal: nl liver, spleen, soft, tender (Tenderness in the lower abdomen especially in the mons pubis and left lower abdomen toward the left flank. There is erythema in the left side of the mons pubis toward the left lower abdomen. There is a small opening seen at the left side upper part of the mons pubis that drainging pus. there is small area of induration in the lateral side of the opening about 3 x 3 cm, tender in touch. The left lower abdomen and left side of the mons pubis all tender and palpation. There is also mild tenderness in the right lower abdomen. No tenderness in suprapubic area.) Genitourinary - Female: other (External genitalia within normal limits. Speculum examination done. Cervix appears normal. Vagina normal. Scant amount of blood in the vault. No abnormal vaginal discharge noted. Bimanual examination: No cervical motion tenderness. No uterine tenderness. There is mild tenderness in the right adnexa and right lower abdomen. There is tenderness in the left lower abdomen. Left adnexa is not tender in palpation) Extremities: normal pulses, other (No calf tenderness, no cords palpable there is 1+ edema bilateral and ankle. Negative Homans sign) Neurological: REGIONAL OPERATIONS DIRECTOR II-XII intact Skin: nl turgor, rash or lesions Lymph: nl lymph nodes Results Result Diagram: 10/03/16 0210 10/03/16 0210 Results 24 hrs Laboratory Tests Test 10/03/16 02:09 10/03/16 02:10 10/03/16 05:27 10/03/16 09:18 Urine Color LT. YELLOW Urine Clarity CLEAR Urine pH 5.5 Urine Specific [place] 1.015 Urine Ketones 3+ H Urine Nitrite NEGATIVE Urine Bilirubin NEGATIVE Urine Urobilinogen 0.2 E.U./dL Urine Leukocyte Esterase NEGATIVE Urine Microscopic RBC 2-5 Urine Microscopic WBC 0-2 Urine Squamous Epithelial Cells MODERATE Urine Bacteria MODERATE Urine Hemoglobin 3+ H Urine Glucose >=1000 Urine Total Protein NEGATIVE White Blood Count 17.2 #H Red Blood Count 4.56 Hemoglobin 13.9 Hematocrit 39.9 Mean Corpuscular Volume 87.5 Mean Corpuscular Hemoglobin 30.5 Mean Corpuscular Hemoglobin Concent 34.8 Red Cell Distribution Width 12.3 Platelet Count 147 Mean Platelet Volume 12.2 #H Neutrophils % 85.8 H Lymphocytes % 6.3 L Monocytes % 6.8 Eosinophils % 0.0 Basophils % 0.1 Nucleated Red Blood Cells % 0.0 Neutrophils # 14.8 H Lymphocytes # 1.1 Monocytes # 1.2 H Eosinophils # 0.0 Basophils # 0.0 Nucleated Red Blood Cells # 0.0 Prothrombin Time 13.5 Prothrombin Time Ratio 1.1 INR International Normalized Ratio 1.03 Activated Partial Thromboplast Time 28.5 Sodium Level 135 Potassium Level 4.0 Chloride Level 101 Carbon Dioxide Level 23 Anion Gap 15 Blood Urea Nitrogen 8 Creatinine 0.66 Glucose Level 303 H Calcium Level 9.0 Total Bilirubin 0.6 Direct Bilirubin 0.00 Indirect Bilirubin 0.6 Aspartate Amino Transf (AST/SGOT) 24 Alanine Aminotransferase (ALT/SGPT) 53 Alkaline Phosphatase 108 Total Protein 6.7 Albumin 4.2 Globulin 2.50 Albumin/Globulin Ratio 1.68 Lipase 100 Beta HCG, Quantitative 343.8 Lactic Acid Level 1.4 1.4 Test 10/03/16 13:22 10/03/16 13:40 10/03/16 17:20 Bedside Glucose 249 H 254 H Lactic Acid Level 1.6 Medications Medications Current Medications Sodium Chloride (NS) 1,000 ml @ 100 mls/hr Q10H IV Last administered on t 11:46; Admin Dose 100 MLS/HR; Start 10/03/16 at 09:41 Ondansetron HCl (Zofran Inj) 4 mg Q6H PRN IV NAUSEA AND/OR VOMITING; Start at 10:00 Acetaminophen (Tylenol Tab) 650 mg Q6H PRN PO PAIN LEVEL 1-3 OR FEVER Last administered on 10/03/16 16:48; Admin Dose 650 MG; Start 10/03/16 at 10:00 Acetaminophen/ Hydrocodone Bitart ([place] (5/325)) 1 tab Q6H PRN PO MODERATE PAIN LEVEL 4-6 Last administered on 10/03/16 10:21; Admin Dose 1 TAB; Start at 10:00 Morphine Sulfate (morphine) 2 mg Q4H PRN IV SEVERE PAIN LEVEL 7-10 Last administered on 10/03/16 13:28; Admin Dose 2 MG; Start 10/03/16 at 10:00 Magnesium Hydroxide (Milk Of Mag) 30 ml DAILY PRN PO CONSTIPATION; Start at 10:00 Famotidine 20 mg 20 mg Q12 PO ; Start 10/03/16 at 21:00 Piperacillin Sod/ Tazobactam Sod (Zosyn 3.375gm/ 100 ml (Pmx)) 100 ml @ 200 mls /hr Q8 IVPB Last administered on 10/03/16 16:48; Admin Dose 200 MLS/HR; Start 10/03/16 at 14:00 Insulin Glargine (Lantus) 21 unit DAILY@20 SC ; Start 10/03/16 at 20:00 Diagnostic Test (Pha) (Accu-Chek) 1 ea 02 XX ; Start 10/04/16 at 02:00 Miscellaneous Information 1 ea NOTE XX ; Start 10/03/16 at 12:00 Glucose (Glutose) 15 gm Q15M PRN PO DECREASED GLUCOSE; Start 10/03/16 at 12:00 Glucose (Glutose) 22.5 gm Q15M PRN PO DECREASED GLUCOSE; Start 10/03/16 at 12: 00 Dextrose (D50w Syringe) 25 ml Q15M PRN IV DECREASED GLUCOSE; Start 10/03/16 at 12:00 Dextrose (D50w Syringe) 50 ml Q15M PRN IV DECREASED GLUCOSE; Start 10/03/16 at 12:00 Glucagon (Glucagen) 1 mg Q15M PRN IM DECREASED GLUCOSE; Start 10/03/16 at 12:00 Glucose 15 gm 15 gm Q15M PRN BUCCAL DECREASED GLUCOSE; Start 10/03/16 at 12:00 Vancomycin HCl/ Sodium Chloride (Vancocin/NS) 250 ml @ 83.333 mls/ hr Q12H IVPB ; Start 10/04/16 at 00:00 DARLYN GO MD Oct 03, 2016 20:59
[2016-10-03] MEDS: FAMOTIDINE 20 MG TAB PO SCH (21:20)
[2016-10-03] MEDS: VANCOMYCIN 1.5 GM in SOD CHLORIDE 0.9% 250 ML IVPB SCH (23:50)
[2016-10-04] MEDS: morphine 2 MG INJ IV PRN ×2 (02:13→13:42)
[2016-10-04] MEDS: ACCU-CHEK XX SCH (02:14)
[2016-10-04] MEDS: ACETAMINOPHEN 325 MG TAB PO PRN (04:51)
[2016-10-04] MEDS: SOD CHLORIDE 0.9% 1,000 ML IV SCH ×2 (05:09→15:22)
[2016-10-04] MEDS: PIPER-TAZO 3.375 GM IV (PMX) 100 ML IVPB SCH ×3 (05:19→21:53)
[2016-10-04 05:42] LABS: ADD SCAN DIFF NO
[2016-10-04 05:48] LABS: BASOPHILS % 0.1 % (0.0-2.0); HEMATOCRIT 37.2 % (37.0-47.0); HEMOGLOBIN 12.2 g/dl (12.0-16.0); LYMPHOCYTES # 1.6 10^3/ul (0.8-2.9); LYMPHOCYTES % 9.6 % (15.0-51.0); MEAN CORPUSCULAR HEMOGLOBIN 29.4 pg (29.0-33.0); MEAN CORPUSCULAR HGB CONC 32.8 g/dl (32.0-37.0); MEAN CORPUSCULAR VOLUME 89.6 fl (82.0-101.0); MEAN PLATELET VOLUME 12.4 fl (7.4-10.4); MONOCYTE # 1.2 10^3/ul (0.3-0.9); MONOCYTES % 7.1 % (0.0-11.0); NEUTROPHIL # 13.8 10^3/ul (1.6-7.5); NEUTROPHILS % 82.2 % (39.0-77.0); PLATELET COUNT 157 10^3/UL (140-415); RED BLOOD COUNT 4.15 10^6/ul (4.20-5.40); RED CELL DISTRIBUTION WIDTH 12.5 % (11.5-14.5); WHITE BLOOD COUNT 16.8 10^3/ul (4.8-10.8)
[2016-10-04 06:14] LABS: ALBUMIN 3.7 g/dl (3.3-4.9); ALBUMIN/GLOBULIN RATIO 1.37; BILIRUBIN,INDIRECT 0.5 mg/dl (0-1.1); BILIRUBIN,TOTAL 0.5 mg/dl (0.2-1.3); CALCIUM 8.1 mg/dl (8.4-10.2); CREATININE 0.79 mg/dl (0.44-1.00); POTASSIUM 4.2 mmol/L (3.5-5.1); TOTAL PROTEIN 6.4 g/dl (6.1-8.1)
[2016-10-04 06:54] LABS: CHOL/HDL RATIO 2.1 RATIO; MAGNESIUM 2.1 mg/dl (1.7-2.5); PHOSPHORUS 1.8 mg/dl (2.5-4.9)
[2016-10-04] MEDS: INSULIN ASPART [NOVOLOG] 3 ML PEN SC SCH ×7 (08:15→21:07)
[2016-10-04] MEDS: FAMOTIDINE 20 MG TAB PO SCH ×2 (08:17→21:07)
[2016-10-04 08:33] VITALS: BP 112/68; RESP 16
[2016-10-04] MEDS ORDERED: SODIUM PHOSPHATE 20 MEQ in SOD CHLORIDE 0.9% 250 ML IVPB ONE (11:00)
[2016-10-04] MEDS: VANCOMYCIN 1.5 GM in SOD CHLORIDE 0.9% 250 ML IVPB SCH ×2 (11:09→23:39)
[2016-10-04 12:54] LABS: THYROID STIMULATING HORMONE 0.871 MIU/L (0.465-4.680)
--- NOTE | 2016-10-04 13:56 | PN ---
Date/Time of Note Date/Time of Note DATE: 10/04/16 TIME: 13:53 Assessment/Plan VTE Prophylaxis VTE Prophylaxis Intervention: LMWH Lines/Catheters [facility] Peripheral IV Urinary Cath still in place: No Assessment/Plan Chief Complaint/Hosp Course 1. Sepsis secondary to underlying suprapubic abscess. The patient will be continued on antibiotics. The patient has no evidence of any septic shock. 2. Suprapubic abscess. Status post evaluation by general surgery. No drainable abscess. The abscess is spontaneously draining. Continue antibiotics. 3. Abdominal wall cellulitis. The patient will be continued on empiric antibiotics. Infectious disease will follow the patient. 4. Elevated beta hCG with suspected expelled products of conception. SOCIAL WELFARE ADMINISTRATOR consult appreciated. The patient had a spontaneous . Beta hCG levels are trending down. 5. Type 2 diabetes. The patient will be continued on sliding scale insulin along with Lantus insulin and premeal insulin. Hemoglobin A1c more than 11. 6. Morbid obesity. BMI of 40.7 kg/meter squared. Weight reduction will be advised. 7. Fluids, electrolytes, and nutrition. Carbohydrate controlled diet. 8. Gastrointestinal prophylaxis. Histamine 2 receptor blockers. 9. DVT prophylaxis. Subcutaneous Lovenox. 10. Plan. Continue antibiotics. Repeat blood cultures. Follow recommendations from consultants. Replete phosphorus. Case discussed with . Problems: Subjective 24 Hr Interval Summary Free Text/Dictation Abdominal pain better controlled. Blood sugars running high. Exam/Review of Systems Vital Signs Vitals Vital Signs Date Time Temp Pulse Resp B/P Pulse Ox O2 Delivery O2 Flow Rate FiO2 10/04/16 08:33 98.6 94 16 112/68 98 10/03/16 10:56 Room Air Intake and Output 10/03/16 10/03/16 10/04/16 15:00 23:00 07:00 Intake Total 1250 ml 3150 ml 1450 ml Output Total 300 ml Balance 1250 ml 2850 ml 1450 ml Exam GENERAL: This is a morbidly obese female lying in bed in no apparent distress. HEENT: Head normocephalic and atraumatic. Eyes: Anicteric sclerae. Conjunctivae clear. ENT: Nasal septum is midline. Oral mucosa is dry. NECK: Short and obese. RESPIRATORY: Bilaterally diminished breath sounds. No adventitious breath sounds heard. No use of accessory muscles of respiration. CARDIAC: Regular rate and rhythm. S1, S2 heard. ABDOMEN: Soft. Tenderness in the left lower quadrant. Bowel sounds hypoactive in all 4 quadrants. GENITOURINARY: The patient has suprapubic erythema and tenderness with an orifice in the mons pubis, not draining any fluid at this time. Left inguinal area erythema with tenderness. EXTREMITIES: No cyanosis, no clubbing, no edema. Peripheral pulses palpable. NEUROLOGIC: The patient is awake, alert and oriented. Cranial nerves are grossly intact. Results Result Diagram: 10/04/16 0500 10/04/16 0500 Results 24 hrs Laboratory Tests Test 10/03/16 17:20 10/03/16 21:18 10/03/16 22:32 10/04/16 02:14 Bedside Glucose 254 H 262 H 296 H Hemoglobin A1c 11.2 H Test 10/04/16 05:00 10/04/16 08:04 10/04/16 12:08 White Blood Count 16.8 H Red Blood Count 4.15 L Hemoglobin 12.2 Hematocrit 37.2 Mean Corpuscular Volume 89.6 Mean Corpuscular Hemoglobin 29.4 Mean Corpuscular Hemoglobin Concent 32.8 Red Cell Distribution Width 12.5 Platelet Count 157 Mean Platelet Volume 12.4 H Neutrophils % 82.2 H Lymphocytes % 9.6 L Monocytes % 7.1 Eosinophils % 0.0 Basophils % 0.1 Nucleated Red Blood Cells % 0.0 Neutrophils # 13.8 H Lymphocytes # 1.6 Monocytes # 1.2 H Eosinophils # 0.0 Basophils # 0.0 Nucleated Red Blood Cells # 0.0 Sodium Level 137 Potassium Level 4.2 Chloride Level 107 Carbon Dioxide Level 20 L Anion Gap 14 Blood Urea Nitrogen 10 Creatinine 0.79 Glucose Level 261 H Hemoglobin A1c 11.4 H Calcium Level 8.1 L Phosphorus Level 1.8 L Magnesium Level 2.1 Total Bilirubin 0.5 Direct Bilirubin 0.00 Indirect Bilirubin 0.5 Aspartate Amino Transf (AST/SGOT) 24 Alanine Aminotransferase (ALT/SGPT) 34 Alkaline Phosphatase 89 Total Protein 6.4 Albumin 3.7 Globulin 2.70 Albumin/Globulin Ratio 1.37 Triglycerides Level 116 Cholesterol Level 95 L LDL Cholesterol, Calculated 28 HDL Cholesterol 44 Cholesterol/HDL Ratio 2.1 Thyroid Stimulating Hormone (TSH) 0.871 Free Thyroxine 1.19 Beta HCG, Quantitative 73.3 Bedside Glucose 232 H 199 Medications Medications Current Medications Sodium Chloride (NS) 1,000 ml @ 100 mls/hr Q10H IV Last administered on 23:50; Admin Dose 100 MLS/HR; Start 10/03/16 at 09:41 Ondansetron HCl (Zofran Inj) 4 mg Q6H PRN IV NAUSEA AND/OR VOMITING; Start at 10:00 Acetaminophen (Tylenol Tab) 650 mg Q6H PRN PO PAIN LEVEL 1-3 OR FEVER Last administered on 10/04/16 04:51; Admin Dose 650 MG; Start 10/03/16 at 10:00 Acetaminophen/ Hydrocodone Bitart ([place] (5/325)) 1 tab Q6H PRN PO MODERATE PAIN LEVEL 4-6 Last administered on 10/03/16 10:21; Admin Dose 1 TAB; Start at 10:00 Morphine Sulfate (morphine) 2 mg Q4H PRN IV SEVERE PAIN LEVEL 7-10 Last administered on 10/04/16 13:42; Admin Dose 2 MG; Start 10/03/16 at 10:00 Magnesium Hydroxide (Milk Of Mag) 30 ml DAILY PRN PO CONSTIPATION; Start at 10:00 Famotidine 20 mg 20 mg Q12 PO Last administered on 10/03/16 21:20; Admin Dose 20 MG; Start 10/03/16 at 21:00 Piperacillin Sod/ Tazobactam Sod (Zosyn 3.375gm/ 100 ml (Pmx)) 100 ml @ 200 mls /hr Q8 IVPB Last administered on 10/04/16 05:19; Admin Dose 200 MLS/HR; Start 10/03/16 at 14:00 Insulin Glargine (Lantus) 21 unit DAILY@20 SC Last administered on 10/03/16 21 :24; Admin Dose 21 UNIT; Start 10/03/16 at 20:00 Diagnostic Test (Pha) (Accu-Chek) 1 ea 02 XX Last administered on 10/04/16 02: 14; Admin Dose 1 EA; Start 10/04/16 at 02:00 Miscellaneous Information 1 ea NOTE XX ; Start 10/03/16 at 12:00 Glucose (Glutose) 15 gm Q15M PRN PO DECREASED GLUCOSE; Start 10/03/16 at 12:00 Glucose (Glutose) 22.5 gm Q15M PRN PO DECREASED GLUCOSE; Start 10/03/16 at 12: 00 Dextrose (D50w Syringe) 25 ml Q15M PRN IV DECREASED GLUCOSE; Start 10/03/16 at 12:00 Dextrose (D50w Syringe) 50 ml Q15M PRN IV DECREASED GLUCOSE; Start 10/03/16 at 12:00 Glucagon (Glucagen) 1 mg Q15M PRN IM DECREASED GLUCOSE; Start 10/03/16 at 12:00 Glucose 15 gm 15 gm Q15M PRN BUCCAL DECREASED GLUCOSE; Start 10/03/16 at 12:00 Vancomycin HCl 1.5 gm/Sodium Chloride 250 ml @ 83.333 mls/ hr Q12H IVPB Last administered on 10/04/16 11:09; Admin Dose 83.333 MLS/HR; Start 10/04/16 at 00: 00 Sodium Phosphate/ Sodium Chloride (Sodium Phosphate/NS) 255 ml @ 63.75 mls/ hr ONCE ONCE IVPB Last administered on 10/04/16 11:43; Admin Dose 63.75 MLS/HR; Start 10/04/16 at 11:00; Stop 10/04/16 at 14:59 Miscellaneous Information (*Rx Drug Level Order Reminder*) 1 ONCE ONCE XX ; Start 10/04/16 at 23:00; Stop 10/04/16 at 23:01 HERMILA MACK NP Oct 04, 2016 13:56
--- NOTE | 2016-10-04 14:07 | CONS ---
DATE OF ADMISSION: 10/03/2016 DATE OF CONSULTATION: 10/04/2016 TYPE OF CONSULTATION: Infectious Disease. REASON FOR CONSULTATION: Antibiotic management. HISTORY OF PRESENT ILLNESS: Sintia Hudson is a 26-year-old female who comes in with an abscess in the left inguinal area. She is a 26-year-old female with a number of problems include: 1. Type 2 diabetes mellitus. 2. Morbid obesity. The patient came to the emergency room with left groin area pain and perineal redness with a small l esion in the perineal area that drained out fluid. She has had fever and left groin pain since September 30. She passed some tissue while she went to the restroom. She is having regular menstrual ashely ods. She did not think she was . White count in the emergency room was 17.2, temperature 10 1.3. She was started on IV vancomycin and Zosyn. PAST MEDICAL HISTORY: Operations as outlined. FAMILY HISTORY: Noncontributory. SOCIAL HISTORY: She lives at home. 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 She has 2 children. She does not smoke, d rink or abuse drugs. ALLERGIES: NONE TO PENICILLIN, SULFA OR FOODS. MEDICATIONS: Per chart. REVIEW OF SYSTEMS: Noncontributory. PHYSICAL EXAMINATION VITAL SIGNS: The patient on admission had a temperature of 103 degrees. GENERAL: She is morbidly obese female. SKIN: Without generalized rash. HEENT: Within normal limits. NECK: Supple. LYMPH NODES: None palpable. CHEST: Decreased breath sounds at the bases. HEART: Without murmur or gallop. ABDOMEN: Soft, nontender, without organosplenomegaly or masses. She has suprapubic erythema and te nderness in the mons pubis. She was not draining any fluid. EXTREMITIES: Left inguinal area was erythematous and tender. ANCILLARY LABORATORY DATA: White count was 17.2, H and H of 13.9 and 39.9, platelet count of 147,00 0. BUN and creatinine 8/0.66. A CT scan of the abdomen and pelvis showed diffuse fatty infiltration of the liver, mild retained st ool without obstruction. No CT evidence for appendicitis, diffuse soft tissue infiltration within th e left lower quadrant, abdominal pelvic wall and inguinal region suggestive of cellulitis. Obstetric ultrasound no sonographic evidence of intrauterine gestation. Chest x-ray: Mild bibasilar atelect asis. The patient therefore sepsis secondary to suprapubic abscess. She was placed on broad-spectrum antibiotics in the form of vancomycin and Zosyn. She will be seen by VIDEO PRODUCTION ENGINEER. She has cellulitis in the groin area. I will dictate my findings to the hospitalist. Dictated By: JONATHAN SIDDIQUI MD, JD/SYLVIA Conf#: [id number] DID#: [id number]
--- NOTE | 2016-10-04 14:32 | QN ---
Documentation Comment Patient's beta-hCG has declined from 343 to 73 which is consistent with SAB Patient was counseled that she should follow-up with an DIGITAL MUSIC INSTRUCTOR as an outpatient All her questions were answered PHOENIX MUELLER MD Oct 04, 2016 14:32
[2016-10-04] MEDS: HYDROCODONE/APAP (5/325) TAB PO PRN ×2 (15:27→22:03)
--- NOTE | 2016-10-04 16:18 | PN ---
Date/Time of Note Date/Time of Note DATE: 10/04/16 TIME: 16:14 Assessment/Plan Lines/Catheters IV Catheter Type (from [facility]): Peripheral IV Benjamin in Place (from [facility]): No Assessment/Plan Assessment/Plan This is a morbidly obese 26-year-old female with left-sided abdominal wall cellulitis and abscess. * Cultures growing gram-positive cocci in clusters. Continue IV antibiotics. * Continue warm compresses * There is no drainable collection on CT scan, however, on physical exam, I was able to express a mild amount of purulent drainage. If patient continues to be febrile and not improving clinically then she may need an incision and drainage to open up that sinus a little bit more and allow it to drain better. The above was discussed with the patient and the primary care team in detail. Further recommendations will be made based on the patient's clinical course. Subjective 24 Hr Interval Summary Says she feels a little better. Did have fever last night T-max 103.1. T- current 98.6. Exam/Review of Systems Vital Signs Vitals Vital Signs Date Time Temp Pulse Resp B/P Pulse Ox O2 Delivery O2 Flow Rate FiO2 10/04/16 08:33 98.6 94 16 112/68 98 10/03/16 10:56 Room Air Intake and Output 10/03/16 10/03/16 10/04/16 15:00 23:00 07:00 Intake Total 1250 ml 3150 ml 1450 ml Output Total 300 ml Balance 1250 ml 2850 ml 1450 ml Exam Free Text/Dictation GENERAL APPEARANCE: She is an obese female who is awake, alert, and oriented x3 and in no acute distress at this time. CARDIOVASCULAR: S1, S2, regular rate and rhythm. No murmurs appreciated. RESPIRATORY: Clear to auscultation bilaterally. ABDOMEN: Soft. Bowel sounds are present. There is some mild erythema and cellulitis which extends to the left flank also involving the left groin and left buttocks. In the left suprapubic area and mons pubis, there is a 5 mm punctate area of ulceration which on expression drains some purulent fluid. There is no fluctuance. There is no erythema over this area. Area was probed with cotton tip applicator to maintain patency. EXTREMITIES: Her extremities do not exhibit any signs of cyanosis, edema or clubbing. Results Result Diagram: 10/04/16 0500 10/04/16 0500 BRUNO WINTER MD Oct 04, 2016 16:18
[2016-10-04 19:57] VITALS: BP 119/68; RESP 18
[2016-10-04] MEDS: INSULIN GLARGINE [LANtus] 3 ML PEN SC SCH (21:06)
[2016-10-04] MEDS: MAGNESIUM HYDROXIDE 30ML CUP PO PRN (21:11)
[2016-10-05] VITALS (10 sets, daily range): BP systolic 121–139; BP diastolic 62–80; PULSE 90–107; RESP 16–32
[2016-10-05] MEDS: SOD CHLORIDE 0.9% 1,000 ML IV SCH ×4 (01:41→21:41)
[2016-10-05] MEDS: ACCU-CHEK XX SCH (01:45)
[2016-10-05] MEDS: morphine 2 MG INJ IV PRN ×3 (02:59→20:18)
[2016-10-05] MEDS: PIPER-TAZO 3.375 GM IV (PMX) 100 ML IVPB SCH ×3 (05:44→21:31)
[2016-10-05 05:58] LABS: ADD SCAN DIFF NO
[2016-10-05 06:13] LABS: BASOPHILS % 0.2 % (0.0-2.0); EOSINOPHILS % 0.3 % (0.0-7.0); HEMATOCRIT 33.1 % (37.0-47.0); HEMOGLOBIN 10.8 g/dl (12.0-16.0); LYMPHOCYTES # 2.3 10^3/ul (0.8-2.9); LYMPHOCYTES % 16.6 % (15.0-51.0); MEAN CORPUSCULAR HGB CONC 32.6 g/dl (32.0-37.0); MEAN CORPUSCULAR VOLUME 88.7 fl (82.0-101.0); MEAN PLATELET VOLUME 11.6 fl (7.4-10.4); MONOCYTE # 0.9 10^3/ul (0.3-0.9); MONOCYTES % 6.5 % (0.0-11.0); NEUTROPHIL # 10.3 10^3/ul (1.6-7.5); NEUTROPHILS % 75.2 % (39.0-77.0); PLATELET COUNT 161 10^3/UL (140-415); RED BLOOD COUNT 3.73 10^6/ul (4.20-5.40); RED CELL DISTRIBUTION WIDTH 12.4 % (11.5-14.5); WHITE BLOOD COUNT 13.8 10^3/ul (4.8-10.8)
[2016-10-05 07:00] LABS: MAGNESIUM 2.2 mg/dl (1.7-2.5); PHOSPHORUS 1.9 mg/dl (2.5-4.9)
[2016-10-05 07:07] LABS: ALBUMIN 3.1 g/dl (3.3-4.9); ALBUMIN/GLOBULIN RATIO 1.06; BILIRUBIN,INDIRECT 0.3 mg/dl (0-1.1); BILIRUBIN,TOTAL 0.3 mg/dl (0.2-1.3); CALCIUM 8.2 mg/dl (8.4-10.2); CREATININE 0.61 mg/dl (0.44-1.00); POTASSIUM 3.7 mmol/L (3.5-5.1)
[2016-10-05] MEDS ORDERED: VANCOMYCIN 1.5 GM in SOD CHLORIDE 0.9% 250 ML IVPB SCH (08:00)
[2016-10-05] MEDS: FAMOTIDINE 20 MG TAB PO SCH ×2 (08:51→20:19)
[2016-10-05] MEDS: ENOXAPARIN 40 MG/0.4 ML SYG SC SCH (08:57)
[2016-10-05] MEDS: INSULIN ASPART [NOVOLOG] 3 ML PEN SC SCH ×6 (08:58→20:25)
--- NOTE | 2016-10-05 09:39 | PN ---
Date/Time of Note Date/Time of Note DATE: 10/05/16 TIME: 09:37 Assessment/Plan Lines/Catheters IV Catheter Type (from [facility]): Peripheral IV Benjamin in Place (from [facility]): No Assessment/Plan Assessment/Plan This is a morbidly obese 26-year-old female with left-sided abdominal wall cellulitis and abscess. * Will need further incision and drainage in the operating room. * Discussed with patient along with all risks and benefits. She understands and agrees to proceed. * Will schedule for I&D. Subjective 24 Hr Interval Summary Still with pain of suprapubic, right groin and right flank area. T-max 100.3 Exam/Review of Systems Vital Signs Vitals Vital Signs Date Time Temp Pulse Resp B/P Pulse Ox O2 Delivery O2 Flow Rate FiO2 10/05/16 08:34 100.3 106 16 125/73 96 10/03/16 10:56 Room Air Intake and Output 10/04/16 10/04/16 10/05/16 15:00 23:00 07:00 Intake Total 250 ml 2705 ml 800 ml Balance 250 ml 2705 ml 800 ml Exam Free Text/Dictation This is a morbidly obese 26-year-old female with left-sided abdominal wall cellulitis and abscess. * Cultures growing gram-positive cocci in clusters. Continue IV antibiotics. * Continue warm compresses * There is no drainable collection on CT scan, however, on physical exam, I was able to express a mild amount of purulent drainage. If patient continues to be febrile and not improving clinically then she may need an incision and drainage to open up that sinus a little bit more and allow it to drain better. The above was discussed with the patient and the primary care team in detail. Further recommendations will be made based on the patient's clinical course. WOUND: Draining sinus at close, however, when probed with a cotton tip applicator and opened up there was still drainage of purulent fluid. Results Result Diagram: 10/05/16 0539 10/05/16 0539 BRUNO WINTER MD Oct 05, 2016 09:39
[2016-10-05] MEDS: MUPIROCIN 2% 22 GM OINT TOP SCH ×2 (13:15→20:35)
[2016-10-05] MEDS ORDERED: PROPOFOL 100 ML ONE (15:56)
[2016-10-05] MEDS ORDERED: LIDOCAINE 2% (SDV) 5 ML INJ ONE (15:56)
[2016-10-05] MEDS ORDERED: FENTAnyl 50 MCG/ML VIAL ONE (15:57)
[2016-10-05] MEDS ORDERED: MIDAZOLAM 1 MG/ML 2 ML INJ ONE (15:57)
--- NOTE | 2016-10-05 15:58 | HPN ---
Date/Time of Note Date/Time of Note DATE: 10/05/16 TIME: 15:57 Interval H&P Admission Note Pt. seen H&P reviewed: No system changes BRUNO WINTER MD Oct 05, 2016 15:58
[2016-10-05] MEDS ORDERED: LIDOCAINE 1% (MPF) 30 ML INJ ONE (16:06)
[2016-10-05] MEDS ORDERED: ONDANSETRON 4 MG INJ IV PRN ×2 (16:30→17:00)
--- NOTE | 2016-10-05 16:36 | OPR ---
Date/Time of Note Date/Time of Note DATE: 10/05/16 TIME: 16:32 Operative Report Procedure Date: Oct 05, 2016 Preoperative Diagnosis 1. Suprapubic abscess 2. Cellulitis of left abdominal wall Postoperative Diagnosis 1. Suprapubic abscess 2. Cellulitis of left abdominal wall Operation Performed Incision and drainage of suprapubic abscess Surgeon: BRUNO WINTER MD Anesthesia: MAC Estimated Blood Loss: minimal Specimens Wound cultures Complications: None Pt Condition Post Procedure: stable Disposition: PACU Indications The patient is a morbidly obese 26-year-old female who presented with fever, leukocytosis, cellulitis of the left groin extending to the left flank and buttocks as well as an abscess of the suprapubic area. The patient was scheduled for incision and drainage. All risks and benefits of the procedure including, but not limited to: Wound infection, excessive bleeding, abscess recurrence, etc. were all explained to the patient in full detail. She fully understood and wished to proceed with the procedure. Informed consent was obtained Operative\Procedure Findings Suprapubic abscess with purulent drainage Procedure Description The patient was brought to the operating room and placed supine on the operating table. Bilateral sequential compression devices were placed on both lower extremities. The patient had been maintained on broad-spectrum intravenous antibiotics while an inpatient on the floor. After adequate sedation was achieved the left groin and abdomen were prepped and draped in standard surgical fashion. After performance of the surgical timeout 1% lidocaine was injected over the area of the abscess. Incision was made over the abscess using a 15 blade scalpel. Purulent fluid was drained. Cultures were taken and sent for microbiological analysis. Loculations were broken up using blunt finger dissection. The abscess cavity extended towards the left anterior superior iliac spine. All the pus was suctioned out. Wound cavity was then irrigated with copious amounts of warm saline. Hemostasis was then inspected for and noted to be adequate. The wound cavity was then packed with 1 inch iodoform packing. Incision was cleaned and sterile dressings were applied. The patient was then transported to the recovery room in stable condition. All counts were correct at the end of the case 2. BRUNO WINTER MD Oct 05, 2016 16:35
[2016-10-05] MEDS ORDERED: METOCLOPRAMIDE 10 MG INJ IV PRN (17:00)
[2016-10-05] MEDS ORDERED: INSULIN ASPART [NOVOLOG] 3 ML PEN SC ONE (17:00)
[2016-10-05] MEDS ORDERED: OXYCODONE/ACETAMINOPHEN (5/325) TAB PO PRN ×2 (17:00)
[2016-10-05] MEDS ORDERED: HYDROmorphONE (0.2 MG/ML) 10ML SYG IV PRN ×3 (17:00)
--- NOTE | 2016-10-05 17:35 | PN ---
Date/Time of Note Date/Time of Note DATE: 10/05/16 TIME: 17:32 Assessment/Plan VTE Prophylaxis VTE Prophylaxis Intervention: LMWH Lines/Catheters IV [facility] (from [facility]): Peripheral IV Urinary Cath still in place: No Assessment/Plan Chief Complaint/Hosp Course 1. Sepsis secondary to underlying suprapubic abscess. The patient will be continued on antibiotics. The patient has no evidence of any septic shock. 2. Suprapubic abscess. Status post incision and drainage on 10/05/2016. Continue surgical recommendations. Continue antibiotics. 3. Abdominal wall cellulitis. The patient will be continued on empiric antibiotics. Infectious disease is following the patient. 4. Elevated beta hCG with suspected expelled products of conception. ROOM SERVICE WAITER consult appreciated. The patient had a spontaneous . Beta hCG levels are trending down. Pathology showed immature chorionic villi and acutely inflamed decidua. 5. Type 2 diabetes. The patient will be continued on sliding scale insulin along with Lantus insulin and premeal insulin. Hemoglobin A1c more than 11. 6. Morbid obesity. BMI of 40.7 kg/meter squared. Weight reduction will be advised. 7. Fluids, electrolytes, and nutrition. Carbohydrate controlled diet. 8. Gastrointestinal prophylaxis. Histamine 2 receptor blockers. 9. DVT prophylaxis. Subcutaneous Lovenox. 10. Plan. Continue antibiotics. Replete phosphorus. Continue surgical and ID recommendations. Case discussed with . Problems: Subjective 24 Hr Interval Summary Free Text/Dictation The patient is status post I&D of the suprapubic abscess today. Exam/Review of Systems Vital Signs Vitals Vital Signs Date Time Temp Pulse Resp B/P Pulse Ox O2 Delivery O2 Flow Rate FiO2 10/05/16 16:45 98.0 10/05/16 16:38 107 18 137/71 99 Room Air Intake and Output 10/04/16 10/04/16 10/05/16 15:00 23:00 07:00 Intake Total 250 ml 2705 ml 800 ml Balance 250 ml 2705 ml 800 ml Exam GENERAL: This is a morbidly obese female lying in bed in no apparent distress. HEENT: Head normocephalic and atraumatic. Eyes: Anicteric sclerae. Conjunctivae clear. ENT: Nasal septum is midline. Oral mucosa is dry. NECK: Short and obese. RESPIRATORY: Bilaterally diminished breath sounds. No adventitious breath sounds heard. No use of accessory muscles of respiration. CARDIAC: Regular rate and rhythm. S1, S2 heard. ABDOMEN: Soft. Tenderness in the left lower quadrant. Bowel sounds hypoactive in all 4 quadrants. GENITOURINARY: Packing in the suprapubic area. EXTREMITIES: No cyanosis, no clubbing, no edema. Peripheral pulses palpable. NEUROLOGIC: The patient is awake, alert and oriented. Cranial nerves are grossly intact. Results Result Diagram: 10/05/16 0539 10/05/16 0539 Results 24 hrs Laboratory Tests Test 10/04/16 17:43 10/04/16 21:04 10/04/16 21:40 10/05/16 00:14 Bedside Glucose 241 H 208 Vancomycin Level Trough 5.0 L Beta HCG, Quantitative 41.2 Test 10/05/16 01:42 10/05/16 05:39 10/05/16 08:03 10/05/16 08:40 Bedside Glucose 208 159 153 White Blood Count 13.8 H Red Blood Count 3.73 L Hemoglobin 10.8 L Hematocrit 33.1 L Mean Corpuscular Volume 88.7 Mean Corpuscular Hemoglobin 29.0 Mean Corpuscular Hemoglobin Concent 32.6 Red Cell Distribution Width 12.4 Platelet Count 161 Mean Platelet Volume 11.6 H Neutrophils % 75.2 Lymphocytes % 16.6 Monocytes % 6.5 Eosinophils % 0.3 Basophils % 0.2 Nucleated Red Blood Cells % 0.0 Neutrophils # 10.3 H Lymphocytes # 2.3 Monocytes # 0.9 Eosinophils # 0.0 Basophils # 0.0 Nucleated Red Blood Cells # 0.0 Sodium Level 138 Potassium Level 3.7 Chloride Level 107 Carbon Dioxide Level 23 Anion Gap 12 Blood Urea Nitrogen 10 Creatinine 0.61 Glucose Level 168 Calcium Level 8.2 L Phosphorus Level 1.9 L Magnesium Level 2.2 Total Bilirubin 0.3 Direct Bilirubin 0.00 Indirect Bilirubin 0.3 Aspartate Amino Transf (AST/SGOT) 20 Alanine Aminotransferase (ALT/SGPT) 32 Alkaline Phosphatase 81 Total Protein 6.0 L Albumin 3.1 L Globulin 2.90 Albumin/Globulin Ratio 1.06 Test 10/05/16 12:27 10/05/16 17:21 Bedside Glucose 149 139 Medications Medications Current Medications Sodium Chloride (NS) 1,000 ml @ 100 mls/hr Q10H IV Last administered on t 04:16; Admin Dose 100 MLS/HR; Start 10/03/16 at 09:41 Ondansetron HCl (Zofran Inj) 4 mg Q6H PRN IV NAUSEA AND/OR VOMITING; Start at 10:00 Acetaminophen (Tylenol Tab) 650 mg Q6H PRN PO PAIN LEVEL 1-3 OR FEVER Last administered on 10/04/16 04:51; Admin Dose 650 MG; Start 10/03/16 at 10:00 Acetaminophen/ Hydrocodone Bitart ([place] (5/325)) 1 tab Q6H PRN PO MODERATE PAIN LEVEL 4-6 Last administered on 10/04/16 22:03; Admin Dose 1 TAB; Start at 10:00 Morphine Sulfate (morphine) 2 mg Q4H PRN IV SEVERE PAIN LEVEL 7-10 Last administered on 10/05/16 10:01; Admin Dose 2 MG; Start 10/03/16 at 10:00 Magnesium Hydroxide (Milk Of Mag) 30 ml DAILY PRN PO CONSTIPATION Last administered on 10/04/16 21:11; Admin Dose 30 ML; Start 10/03/16 at 10:00 Famotidine 20 mg 20 mg Q12 PO Last administered on 10/05/16 08:51; Admin Dose 20 MG; Start 10/03/16 at 21:00 Piperacillin Sod/ Tazobactam Sod (Zosyn 3.375gm/ 100 ml (Pmx)) 100 ml @ 200 mls /hr Q8 IVPB Last administered on 10/05/16 13:15; Admin Dose 200 MLS/HR; Start 10/03/16 at 14:00 Diagnostic Test (Pha) (Accu-Chek) 1 ea 02 XX Last administered on 10/05/16 01: 45; Admin Dose 1 EA; Start 10/04/16 at 02:00 Miscellaneous Information 1 ea NOTE XX ; Start 10/03/16 at 12:00 Glucose (Glutose) 15 gm Q15M PRN PO DECREASED GLUCOSE; Start 10/03/16 at 12:00 Glucose (Glutose) 22.5 gm Q15M PRN PO DECREASED GLUCOSE; Start 10/03/16 at 12: 00 Dextrose (D50w Syringe) 25 ml Q15M PRN IV DECREASED GLUCOSE; Start 10/03/16 at 12:00 Dextrose (D50w Syringe) 50 ml Q15M PRN IV DECREASED GLUCOSE; Start 10/03/16 at 12:00 Glucagon (Glucagen) 1 mg Q15M PRN IM DECREASED GLUCOSE; Start 10/03/16 at 12:00 Glucose (Glutose) 15 gm Q15M PRN BUCCAL DECREASED GLUCOSE; Start 10/03/16 at 12 :00 Enoxaparin Sodium (Lovenox) 40 mg DAILY SC Last administered on 10/05/16 08:57 ; Admin Dose 40 MG; Start 10/05/16 at 09:00 Insulin Glargine (Lantus) 24 unit DAILY@20 SC Last administered on 10/04/16 21 :06; Admin Dose 24 UNIT; Start 10/04/16 at 20:00 Mupirocin 1 applic 1 applic BID TOP Last administered on 10/05/16 13:15; Admin Dose 1 APPLIC; Start 10/05/16 at 11:00 Vancomycin HCl/ Sodium Chloride (Vancocin/NS) 250 ml @ 83.333 mls/ hr Q8H IVPB ; Start 10/05/16 at 18:00 HERMILA MACK NP Oct 05, 2016 17:35
[2016-10-05] MEDS: VANCOMYCIN 1.5 GM in SOD CHLORIDE 0.9% 250 ML IVPB SCH (17:50)
[2016-10-05] MEDS ORDERED: POTASSIUM PHOSPHATE 15 MM in SOD CHLORIDE 0.9% 250 ML IVPB ONE (20:00)
[2016-10-05] MEDS: MAGNESIUM HYDROXIDE 30ML CUP PO PRN (20:19)
[2016-10-05] MEDS: INSULIN GLARGINE [LANtus] 3 ML PEN SC SCH (20:24)
[2016-10-06] MEDS: morphine 2 MG INJ IV PRN (01:19)
[2016-10-06] MEDS: ACCU-CHEK XX SCH (01:20)
[2016-10-06] MEDS: VANCOMYCIN 1.5 GM in SOD CHLORIDE 0.9% 250 ML IVPB SCH ×3 (01:30→20:24)
[2016-10-06] MEDS: ACETAMINOPHEN 325 MG TAB PO PRN (02:28)
[2016-10-06] MEDS: PIPER-TAZO 3.375 GM IV (PMX) 100 ML IVPB SCH ×3 (05:45→22:44)
[2016-10-06] MEDS: SOD CHLORIDE 0.9% 1,000 ML IV SCH ×2 (05:45→17:41)
[2016-10-06 06:24] LABS: ADD SCAN DIFF NO
--- NOTE | 2016-10-06 06:24 | PN ---
DATE: 10/05/2016 SUBJECTIVE: The patient is awake, lying comfortably in bed. She just received pain medication, loo ks comfortable, no fevers. Temperature max was 100.3. LABORATORY DATA: WBC 13.8, platelets 161, neutrophils 75.2. BUN 10, creatinine 0.61. MICROBIOLOGY: Blood culture on admission grew staph species. Nares swab came back positive for MRS A. Abdominal wound drainage growing Staphylococcus aureus, preliminary. Repeat blood cultures, pre liminary negative. ANTIMICROBIALS: The patient is on: 1. IV vancomycin. 2. Topical Bactroban to nares. 3. Zosyn. PHYSICAL EXAMINATION: GENERAL: Morbidly obese young woman who is alert, in no distress. HEENT: Head atraumatic, normocephalic. Sclerae anicteric. Buccal mucosa pink. NECK: Supple. CHEST: Rise symmetrical. Breath sounds clear. HEART: S1, S2. ABDOMEN: Soft, bowel sounds present. EXTREMITIES: Without cyanosis. ASSESSMENT: 1. Systemic inflammatory response syndrome with fevers and leukocytosis secondary to #2. 2. Suprapubic abscess with left abdominal wall cellulitis. Cultures of the fluid growing Staphyloc occus aureus, preliminary. 3. Staphylococcus bacteremia, possibly contaminant. 4. Morbid obesity. 5. Diabetes. PLAN: The patient remains stable on appropriate antibiotics. Pending final cultures. Pending I an d D. We will follow surgical recommendations. Dictated By: NELL DEMARCO FINANCIAL SYSTEMS ADMINISTRATOR for JONATHAN PACE/SYLVIA Conf#: [id number] DID#: [id number]
[2016-10-06 06:31] LABS: BASOPHILS % 0.3 % (0.0-2.0); EOSINOPHILS % 0.2 % (0.0-7.0); HEMATOCRIT 35.1 % (37.0-47.0); HEMOGLOBIN 11.5 g/dl (12.0-16.0); LYMPHOCYTES # 2.4 10^3/ul (0.8-2.9); LYMPHOCYTES % 19.9 % (15.0-51.0); MEAN CORPUSCULAR HEMOGLOBIN 29.6 pg (29.0-33.0); MEAN CORPUSCULAR HGB CONC 32.8 g/dl (32.0-37.0); MEAN CORPUSCULAR VOLUME 90.2 fl (82.0-101.0); MEAN PLATELET VOLUME 11.6 fl (7.4-10.4); MONOCYTES % 8.3 % (0.0-11.0); NEUTROPHIL # 8.2 10^3/ul (1.6-7.5); NEUTROPHILS % 69.3 % (39.0-77.0); PLATELET COUNT 217 10^3/UL (140-415); RED BLOOD COUNT 3.89 10^6/ul (4.20-5.40); RED CELL DISTRIBUTION WIDTH 12.5 % (11.5-14.5); WHITE BLOOD COUNT 11.9 10^3/ul (4.8-10.8)
[2016-10-06 06:51] LABS: ALBUMIN 3.5 g/dl (3.3-4.9); ALBUMIN/GLOBULIN RATIO 1.12; BILIRUBIN,INDIRECT 0.6 mg/dl (0-1.1); BILIRUBIN,TOTAL 0.6 mg/dl (0.2-1.3); CALCIUM 8.3 mg/dl (8.4-10.2); CREATININE 0.67 mg/dl (0.44-1.00); POTASSIUM 3.7 mmol/L (3.5-5.1); TOTAL PROTEIN 6.6 g/dl (6.1-8.1)
[2016-10-06 07:08] LABS: MAGNESIUM 2.2 mg/dl (1.7-2.5); PHOSPHORUS 3.3 mg/dl (2.5-4.9)
[2016-10-06 07:28] VITALS: BP 103/66; RESP 18
[2016-10-06] MEDS: INSULIN ASPART [NOVOLOG] 3 ML PEN SC SCH ×7 (08:24→20:40)
[2016-10-06] MEDS: FAMOTIDINE 20 MG TAB PO SCH ×2 (09:38→20:24)
[2016-10-06] MEDS: MUPIROCIN 2% 22 GM OINT TOP SCH ×2 (09:38→20:24)
[2016-10-06] MEDS: HYDROCODONE/APAP (5/325) TAB PO PRN ×3 (09:47→22:43)
[2016-10-06] MEDS: ENOXAPARIN 40 MG/0.4 ML SYG SC SCH (10:01)
--- NOTE | 2016-10-06 10:41 | PN ---
Date/Time of Note Date/Time of Note DATE: 10/06/16 TIME: 10:40 Assessment/Plan VTE Prophylaxis VTE Prophylaxis Intervention: LMWH Lines/Catheters IV Catheter Type (from [facility]): Peripheral IV Urinary Cath still in place: No Assessment/Plan Chief Complaint/Hosp Course 1. Sepsis secondary to underlying suprapubic abscess. The patient will be continued on antibiotics. The patient has no evidence of any septic shock. 2. Suprapubic abscess. Status post incision and drainage on 10/05/2016. Continue surgical recommendations. Continue antibiotics. 3. Abdominal wall cellulitis. The patient will be continued on empiric antibiotics. Infectious disease is following the patient. 4. Elevated beta hCG with suspected expelled products of conception. ENTERTAINMENT MANAGER consult appreciated. The patient had a spontaneous . Beta hCG levels are trending down. Pathology showed immature chorionic villi and acutely inflamed decidua. 5. Type 2 diabetes. The patient will be continued on sliding scale insulin along with Lantus insulin and premeal insulin. Hemoglobin A1c more than 11. 6. Morbid obesity. BMI of 40.7 kg/meter squared. Weight reduction will be advised. 7. Fluids, electrolytes, and nutrition. Carbohydrate controlled diet. 8. Gastrointestinal prophylaxis. Histamine 2 receptor blockers. 9. DVT prophylaxis. Subcutaneous Lovenox. 10. Plan. Continue antibiotics. Continue surgical and ID recommendations. Case discussed with . Problems: Subjective 24 Hr Interval Summary Free Text/Dictation The patient had a febrile episode last night. Exam/Review of Systems Vital Signs Vitals Vital Signs Date Time Temp Pulse Resp B/P Pulse Ox O2 Delivery O2 Flow Rate FiO2 10/06/16 07:28 98.6 87 18 103/66 98 10/05/16 17:07 Room Air Intake and Output 10/05/16 10/05/16 10/06/16 15:00 23:00 07:00 Intake Total 350 ml 2290 ml 3060 ml Output Total 1055 ml 3800 ml Balance 350 ml 1235 ml -740 ml Exam GENERAL: This is a morbidly obese female lying in bed in no apparent distress. HEENT: Head normocephalic and atraumatic. Eyes: Anicteric sclerae. Conjunctivae clear. ENT: Nasal septum is midline. Oral mucosa is dry. NECK: Short and obese. RESPIRATORY: Bilaterally diminished breath sounds. No adventitious breath sounds heard. No use of accessory muscles of respiration. CARDIAC: Regular rate and rhythm. S1, S2 heard. ABDOMEN: Soft. Tenderness in the left lower quadrant. Bowel sounds hypoactive in all 4 quadrants. GENITOURINARY: Packing in the suprapubic area. EXTREMITIES: No cyanosis, no clubbing, no edema. Peripheral pulses palpable. NEUROLOGIC: The patient is awake, alert and oriented. Cranial nerves are grossly intact. Results Result Diagram: 10/06/1652610/06/16526 Results 24 hrs Laboratory Tests Test 10/05/16 12:27 10/05/16 17:21 10/05/16 20:19 10/06/16 01:21 Bedside Glucose 149 139 208 224 H Test 10/06/16 05:27 10/06/16 08:17 White Blood Count 11.9 H Red Blood Count 3.89 L Hemoglobin 11.5 L Hematocrit 35.1 L Mean Corpuscular Volume 90.2 Mean Corpuscular Hemoglobin 29.6 Mean Corpuscular Hemoglobin Concent 32.8 Red Cell Distribution Width 12.5 Platelet Count 217 # Mean Platelet Volume 11.6 H Neutrophils % 69.3 Lymphocytes % 19.9 Monocytes % 8.3 Eosinophils % 0.2 Basophils % 0.3 Nucleated Red Blood Cells % 0.0 Neutrophils # 8.2 H Lymphocytes # 2.4 Monocytes # 1.0 H Eosinophils # 0.0 Basophils # 0.0 Nucleated Red Blood Cells # 0.0 Sodium Level 139 Potassium Level 3.7 Chloride Level 106 Carbon Dioxide Level 24 Anion Gap 13 Blood Urea Nitrogen 8 Creatinine 0.67 Glucose Level 146 Calcium Level 8.3 L Phosphorus Level 3.3 Magnesium Level 2.2 Total Bilirubin 0.6 Direct Bilirubin 0.00 Indirect Bilirubin 0.6 Aspartate Amino Transf (AST/SGOT) 52 H Alanine Aminotransferase (ALT/SGPT) 42 Alkaline Phosphatase 86 Total Protein 6.6 Albumin 3.5 Globulin 3.10 Albumin/Globulin Ratio 1.12 Bedside Glucose 159 Medications Medications Current Medications Sodium Chloride (NS) 1,000 ml @ 100 mls/hr Q10H IV Last administered on 05:45; Admin Dose 100 MLS/HR; Start 10/03/16 at 09:41 Ondansetron HCl (Zofran Inj) 4 mg Q6H PRN IV NAUSEA AND/OR VOMITING Last administered on 10/05/16 17:56; Admin Dose 4 MG; Start 10/03/16 at 10:00 Acetaminophen (Tylenol Tab) 650 mg Q6H PRN PO PAIN LEVEL 1-3 OR FEVER Last administered on 10/06/16 02:28; Admin Dose 650 MG; Start 10/03/16 at 10:00 Acetaminophen/ Hydrocodone Bitart ([place] (5/325)) 1 tab Q6H PRN PO MODERATE PAIN LEVEL 4-6 Last administered on 10/06/16 09:47; Admin Dose 1 TAB; Start at 10:00 Morphine Sulfate (morphine) 2 mg Q4H PRN IV SEVERE PAIN LEVEL 7-10 Last administered on 10/06/16 01:19; Admin Dose 2 MG; Start 10/03/16 at 10:00 Magnesium Hydroxide (Milk Of Mag) 30 ml DAILY PRN PO CONSTIPATION Last administered on 10/05/16 20:19; Admin Dose 30 ML; Start 10/03/16 at 10:00 Famotidine 20 mg 20 mg Q12 PO Last administered on 10/06/16 09:38; Admin Dose 20 MG; Start 10/03/16 at 21:00 Piperacillin Sod/ Tazobactam Sod (Zosyn 3.375gm/ 100 ml (Pmx)) 100 ml @ 200 mls /hr Q8 IVPB Last administered on 10/06/16 05:45; Admin Dose 200 MLS/HR; Start 10/03/16 at 14:00 Diagnostic Test (Pha) (Accu-Chek) 1 ea 02 XX Last administered on 10/06/16 01: 20; Admin Dose 1 EA; Start 10/04/16 at 02:00 Miscellaneous Information 1 ea NOTE XX ; Start 10/03/16 at 12:00 Glucose (Glutose) 15 gm Q15M PRN PO DECREASED GLUCOSE; Start 10/03/16 at 12:00 Glucose (Glutose) 22.5 gm Q15M PRN PO DECREASED GLUCOSE; Start 10/03/16 at 12: 00 Dextrose (D50w Syringe) 25 ml Q15M PRN IV DECREASED GLUCOSE; Start 10/03/16 at 12:00 Dextrose (D50w Syringe) 50 ml Q15M PRN IV DECREASED GLUCOSE; Start 10/03/16 at 12:00 Glucagon (Glucagen) 1 mg Q15M PRN IM DECREASED GLUCOSE; Start 10/03/16 at 12:00 Glucose (Glutose) 15 gm Q15M PRN BUCCAL DECREASED GLUCOSE; Start 10/03/16 at 12 :00 Enoxaparin Sodium (Lovenox) 40 mg DAILY SC Last administered on 10/06/16 10:01 ; Admin Dose 40 MG; Start 10/05/16 at 09:00 Insulin Glargine (Lantus) 24 unit DAILY@20 SC Last administered on 10/05/16 20 :24; Admin Dose 24 UNIT; Start 10/04/16 at 20:00 Mupirocin 1 applic 1 applic BID TOP Last administered on 10/06/16 09:38; Admin Dose 1 APPLIC; Start 10/05/16 at 11:00 Vancomycin HCl/ Sodium Chloride (Vancocin/NS) 250 ml @ 83.333 mls/ hr Q8H IVPB Last administered on 10/06/16 09:39; Admin Dose 83.333 MLS/HR; Start at 18:00 Miscellaneous Information (*Rx Drug Level Order Reminder*) 1 ONCE ONCE XX ; Start 10/06/16 at 17:00; Stop 10/06/16 at 17:01 HERMILA MACK NP Oct 06, 2016 10:41
--- NOTE | 2016-10-06 11:27 | PN ---
Date/Time of Note Date/Time of Note DATE: 10/06/16 TIME: 11:25 Assessment/Plan Lines/Catheters IV Catheter Type (from [facility]): Peripheral IV Benjamin in Place (from [facility]): No Assessment/Plan Assessment/Plan This is a morbidly obese 26-year-old female with left-sided abdominal wall cellulitis and abscess s/p Incision and Drainage POD#1 * Packing removed. Continue local wound care * Cultures growing MRSA. Continue IV antibiotics * Leukocytosis improving * Continue medical management Subjective 24 Hr Interval Summary Feels better. Tmax 100.6 Exam/Review of Systems Vital Signs Vitals Vital Signs Date Time Temp Pulse Resp B/P Pulse Ox O2 Delivery O2 Flow Rate FiO2 10/06/16 07:28 98.6 87 18 103/66 98 10/05/16 17:07 Room Air Intake and Output 10/05/16 10/05/16 10/06/16 15:00 23:00 07:00 Intake Total 350 ml 2290 ml 3060 ml Output Total 1055 ml 3800 ml Balance 350 ml 1235 ml -740 ml Exam Free Text/Dictation WOUND: clean. No active drainage. Surrounding cellulitis improving. Results Result Diagram: 10/06/16 0527 10/06/16 0527 BRUNO WINTER MD Oct 06, 2016 11:27
[2016-10-06 20:04] VITALS: BP 129/73; RESP 18
[2016-10-06] MEDS: INSULIN GLARGINE [LANtus] 3 ML PEN SC SCH (20:39)
--- NOTE | 2016-10-06 20:45 | CONS ---
Date/Time of Note Date/Time of Note DATE: 10/06/16 TIME: 18:22 Assessment/Plan Assessment/Plan Chief Complaint/Hosp Course ID PROGRESS NOTE ABX DAY # * 1. IV vancomycin. * 2. Topical Bactroban to nares. * 3. Zosyn. 24H INTERVAL SUMMARY = POD #1 left-sided abdominal wall cellulitis and abscess s/p Incision and Drainage 10/05/16 * A/A/O -> VSS, fevers resolved, no new issues, resting comfortably * MICROBIOLOGY: Blood culture on admission grew staph species. Nares swab came back positive for MRSA. Abdominal wound drainage growing Staphylococcus aureus, preliminary. Repeat blood cultures, preliminary negative. * PUBIC ABSCESS PRELIMINARY WOUND CX: Specimen: [id number] Status: Resulted Elizabeth: 10/05/16 Rcvd: 10/05 Source: PUBIC ABSC Sp Descrip: Microbiology WOUND CULTURE Preliminary Organism 1 STAPHYLOCOCCUS AUREUS QUANTITY 1+ PHYSICAL EXAMINATION: GENERAL: VSS, NAD, no fever, morbid obse HEENT: Unremarkable NECK: Trach-> midline CHEST: Equal chest rise bilaterally, without dyspnea on observation HEART: Pulse RRR ABDOMEN: Soft -- DSB C/D/I EXTREMITIES: Warm SKIN: No diaphoresis, no rash ID ASSESSMENT: 26 yo F admitted with: 1. Systemic inflammatory response syndrome with fevers and leukocytosis secondary to #2. 2. Suprapubic abscess with left abdominal wall cellulitis. Cultures of the fluid growing Staphylococcus aureus, preliminary. * = POD #1 left-sided abdominal wall cellulitis and abscess s/p Incision and Drainage 10/05/16 3. Staphylococcus bacteremia, possibly contaminant. 4. Morbid obesity. 5. Diabetes. ABX ALLERGIES: None to ABX INVASIVES: *PIV, CURRENT ABX: ABX DAY # * 1. IV vancomycin. * 2. Topical Bactroban to nares. * 3. Zosyn. ID RECOMMENDATIONS: 1. Continue current ABX 2. Wound is growing MRSA -- await final micro from 10/05/16 I&D . . . Problems: Consultation Date/Type/Reason Admit Date/Time Oct 03, 2016 at 05:27 Initial Consult Date 10/03/16 Type of Consultation: ID Exam/Review of Systems Vital Signs Vitals Vital Signs Date Time Temp Pulse Resp B/P Pulse Ox O2 Delivery O2 Flow Rate FiO2 10/06/16 07:28 98.6 87 18 103/66 98 10/05/16 17:07 Room Air Intake and Output 10/05/16 10/05/16 10/06/16 15:00 23:00 07:00 Intake Total 350 ml 2290 ml 3060 ml Output Total 1055 ml 3800 ml Balance 350 ml 1235 ml -740 ml Results Result Diagram: 10/06/1627 10/06/1627 Results 24 hrs Laboratory Tests Test 10/05/16 20:19 10/06/16 01:21 10/06/16 05:27 10/06/16 08:17 Bedside Glucose 208 224 H 159 White Blood Count 11.9 H Red Blood Count 3.89 L Hemoglobin 11.5 L Hematocrit 35.1 L Mean Corpuscular Volume 90.2 Mean Corpuscular Hemoglobin 29.6 Mean Corpuscular Hemoglobin Concent 32.8 Red Cell Distribution Width 12.5 Platelet Count 217 # Mean Platelet Volume 11.6 H Neutrophils % 69.3 Lymphocytes % 19.9 Monocytes % 8.3 Eosinophils % 0.2 Basophils % 0.3 Nucleated Red Blood Cells % 0.0 Neutrophils # 8.2 H Lymphocytes # 2.4 Monocytes # 1.0 H Eosinophils # 0.0 Basophils # 0.0 Nucleated Red Blood Cells # 0.0 Sodium Level 139 Potassium Level 3.7 Chloride Level 106 Carbon Dioxide Level 24 Anion Gap 13 Blood Urea Nitrogen 8 Creatinine 0.67 Glucose Level 146 Calcium Level 8.3 L Phosphorus Level 3.3 Magnesium Level 2.2 Total Bilirubin 0.6 Direct Bilirubin 0.00 Indirect Bilirubin 0.6 Aspartate Amino Transf (AST/SGOT) 52 H Alanine Aminotransferase (ALT/SGPT) 42 Alkaline Phosphatase 86 Total Protein 6.6 Albumin 3.5 Globulin 3.10 Albumin/Globulin Ratio 1.12 Test 10/06/16 12:23 Bedside Glucose 153 Medications Medications Current Medications Sodium Chloride (NS) 1,000 ml @ 100 mls/hr Q10H IV Last administered on t 05:45; Admin Dose 100 MLS/HR; Start 10/03/16 at 09:41 Ondansetron HCl (Zofran Inj) 4 mg Q6H PRN IV NAUSEA AND/OR VOMITING Last administered on 10/05/16 17:56; Admin Dose 4 MG; Start 10/03/16 at 10:00 Acetaminophen (Tylenol Tab) 650 mg Q6H PRN PO PAIN LEVEL 1-3 OR FEVER Last administered on 10/06/16 02:28; Admin Dose 650 MG; Start 10/03/16 at 10:00 Acetaminophen/ Hydrocodone Bitart ([place] (5/325)) 1 tab Q6H PRN PO MODERATE PAIN LEVEL 4-6 Last administered on 10/06/16 17:31; Admin Dose 1 TAB; Start at 10:00 Morphine Sulfate (morphine) 2 mg Q4H PRN IV SEVERE PAIN LEVEL 7-10 Last administered on 10/06/16 01:19; Admin Dose 2 MG; Start 10/03/16 at 10:00 Magnesium Hydroxide (Milk Of Mag) 30 ml DAILY PRN PO CONSTIPATION Last administered on 10/05/16 20:19; Admin Dose 30 ML; Start 10/03/16 at 10:00 Famotidine 20 mg 20 mg Q12 PO Last administered on 10/06/16 09:38; Admin Dose 20 MG; Start 10/03/16 at 21:00 Piperacillin Sod/ Tazobactam Sod (Zosyn 3.375gm/ 100 ml (Pmx)) 100 ml @ 200 mls /hr Q8 IVPB Last administered on 10/06/16 15:47; Admin Dose 200 MLS/HR; Start 10/03/16 at 14:00 Diagnostic Test (Pha) (Accu-Chek) 1 ea 02 XX Last administered on 10/06/16 01: 20; Admin Dose 1 EA; Start 10/04/16 at 02:00 Miscellaneous Information 1 ea NOTE XX ; Start 10/03/16 at 12:00 Glucose (Glutose) 15 gm Q15M PRN PO DECREASED GLUCOSE; Start 10/03/16 at 12:00 Glucose (Glutose) 22.5 gm Q15M PRN PO DECREASED GLUCOSE; Start 10/03/16 at 12: 00 Dextrose (D50w Syringe) 25 ml Q15M PRN IV DECREASED GLUCOSE; Start 10/03/16 at 12:00 Dextrose (D50w Syringe) 50 ml Q15M PRN IV DECREASED GLUCOSE; Start 10/03/16 at 12:00 Glucagon (Glucagen) 1 mg Q15M PRN IM DECREASED GLUCOSE; Start 10/03/16 at 12:00 Glucose (Glutose) 15 gm Q15M PRN BUCCAL DECREASED GLUCOSE; Start 10/03/16 at 12 :00 Enoxaparin Sodium (Lovenox) 40 mg DAILY SC Last administered on 10/06/16 10:01 ; Admin Dose 40 MG; Start 10/05/16 at 09:00 Insulin Glargine (Lantus) 24 unit DAILY@20 SC Last administered on 10/05/16 20 :24; Admin Dose 24 UNIT; Start 10/04/16 at 20:00 Mupirocin 1 applic 1 applic BID TOP Last administered on 10/06/16 09:38; Admin Dose 1 APPLIC; Start 10/05/16 at 11:00 Vancomycin HCl/ Sodium Chloride (Vancocin/NS) 250 ml @ 83.333 mls/ hr Q8H IVPB Last administered on 10/06/16 09:39; Admin Dose 83.333 MLS/HR; Start at 18:00 Miscellaneous Information (*Rx Drug Level Order Reminder*) 1 ONCE ONCE XX ; Start 10/06/16 at 17:00; Stop 10/06/16 at 17:01 MIGNON EDWARDS NP Oct 06, 2016 18:23
[2016-10-07] MEDS: SOD CHLORIDE 0.9% 1,000 ML IV SCH ×2 (01:48→03:41)
[2016-10-07] MEDS: ACCU-CHEK XX SCH (02:00)
[2016-10-07] MEDS: VANCOMYCIN 1.5 GM in SOD CHLORIDE 0.9% 250 ML IVPB SCH ×2 (02:05→11:27)
[2016-10-07] MEDS: HYDROCODONE/APAP (5/325) TAB PO PRN ×3 (02:06→13:20)
[2016-10-07] MEDS: PIPER-TAZO 3.375 GM IV (PMX) 100 ML IVPB SCH (06:20)
[2016-10-07 06:34] LABS: ADD SCAN DIFF NO
[2016-10-07 06:52] LABS: BASOPHILS % 0.3 % (0.0-2.0); EOSINOPHILS # 0.1 10^3/ul (0.0-0.5); EOSINOPHILS % 0.5 % (0.0-7.0); HEMATOCRIT 32.1 % (37.0-47.0); HEMOGLOBIN 10.7 g/dl (12.0-16.0); LYMPHOCYTES # 1.9 10^3/ul (0.8-2.9); MEAN CORPUSCULAR HEMOGLOBIN 29.6 pg (29.0-33.0); MEAN CORPUSCULAR HGB CONC 33.3 g/dl (32.0-37.0); MEAN CORPUSCULAR VOLUME 88.7 fl (82.0-101.0); MEAN PLATELET VOLUME 11.4 fl (7.4-10.4); MONOCYTE # 0.8 10^3/ul (0.3-0.9); NEUTROPHIL # 6.4 10^3/ul (1.6-7.5); NEUTROPHILS % 68.3 % (39.0-77.0); PLATELET COUNT 206 10^3/UL (140-415); RED BLOOD COUNT 3.62 10^6/ul (4.20-5.40); RED CELL DISTRIBUTION WIDTH 12.5 % (11.5-14.5); WHITE BLOOD COUNT 9.4 10^3/ul (4.8-10.8)
[2016-10-07 06:57] LABS: MAGNESIUM 2.2 mg/dl (1.7-2.5); PHOSPHORUS 3.7 mg/dl (2.5-4.9)
[2016-10-07 07:08] LABS: CALCIUM 7.9 mg/dl (8.4-10.2); CREATININE 0.73 mg/dl (0.44-1.00); POTASSIUM 3.9 mmol/L (3.5-5.1)
[2016-10-07 07:53] VITALS: BP 103/58; RESP 18
[2016-10-07] MEDS: INSULIN ASPART [NOVOLOG] 3 ML PEN SC SCH ×4 (08:00→12:21)
[2016-10-07] MEDS: FAMOTIDINE 20 MG TAB PO SCH (09:41)
[2016-10-07] MEDS: MUPIROCIN 2% 22 GM OINT TOP SCH (09:42)
--- NOTE | 2016-10-07 09:53 | PN ---
Date/Time of Note Date/Time of Note DATE: 10/07/16 TIME: 09:51 Assessment/Plan VTE Prophylaxis VTE Prophylaxis Intervention: LMWH Lines/Catheters IV C[facility] Type [facility] Peripheral IV Urinary Cath still in place: No Assessment/Plan Chief Complaint/Hosp Course 1. Sepsis secondary to underlying suprapubic abscess. The patient will be continued on antibiotics. The patient has no evidence of any septic shock. 2. Suprapubic abscess. Status post incision and drainage on 10/05/2016. Continue surgical recommendations. Continue antibiotics. 3. Abdominal wall cellulitis. The patient will be continued on empiric antibiotics. Infectious disease is following the patient. 4. Elevated beta hCG with suspected expelled products of conception. RIG SUPERINTENDENT consult appreciated. The patient had a spontaneous . Beta hCG levels are trending down. Pathology showed immature chorionic villi and acutely inflamed decidua. 5. Type 2 diabetes. The patient will be continued on sliding scale insulin along with Lantus insulin and premeal insulin. Hemoglobin A1c more than 11. 6. Morbid obesity. BMI of 40.7 kg/meter squared. Weight reduction will be advised. 7. Fluids, electrolytes, and nutrition. Carbohydrate controlled diet. 8. Gastrointestinal prophylaxis. Histamine 2 receptor blockers. 9. DVT prophylaxis. Subcutaneous Lovenox. 10. Plan. Continue antibiotics. Continue surgical and ID recommendations. Await clearance from consultants before discharge. Case discussed with . Problems: Subjective 24 Hr Interval Summary Free Text/Dictation Remains afebrile. Exam/Review of Systems Vital Signs Vitals Vital Signs Date Time Temp Pulse Resp B/P Pulse Ox O2 Delivery O2 Flow Rate FiO2 10/07/16 07:53 98.6 89 18 103/58 96 10/05/16 17:07 Room Air Intake and Output 10/06/16 10/06/16 10/07/16 14:59 22:59 06:59 Intake Total 3190 ml 2500 ml Output Total 600 ml 1500 ml Balance 2590 ml 1000 ml Exam GENERAL: This is a morbidly obese female lying in bed in no apparent distress. HEENT: Head normocephalic and atraumatic. Eyes: Anicteric sclerae. Conjunctivae clear. ENT: Nasal septum is midline. Oral mucosa is dry. NECK: Short and obese. RESPIRATORY: Bilaterally diminished breath sounds. No adventitious breath sounds heard. No use of accessory muscles of respiration. CARDIAC: Regular rate and rhythm. S1, S2 heard. ABDOMEN: Soft. Tenderness in the left lower quadrant. Bowel sounds hypoactive in all 4 quadrants. GENITOURINARY: Packing in the suprapubic area. EXTREMITIES: No cyanosis, no clubbing, no edema. Peripheral pulses palpable. NEUROLOGIC: The patient is awake, alert and oriented. Cranial nerves are grossly intact. Results Result Diagram: 10/07/16 0610/07/16 06 Results 24 hrs Laboratory Tests Test 10/06/16 12:23 10/06/16 20:30 10/07/16 06:05 10/07/16 07:58 Bedside Glucose 153 115 121 White Blood Count 9.4 # Red Blood Count 3.62 L Hemoglobin 10.7 L Hematocrit 32.1 L Mean Corpuscular Volume 88.7 Mean Corpuscular Hemoglobin 29.6 Mean Corpuscular Hemoglobin Concent 33.3 Red Cell Distribution Width 12.5 Platelet Count 206 Mean Platelet Volume 11.4 H Neutrophils % 68.3 Lymphocytes % 20.0 Monocytes % 8.0 Eosinophils % 0.5 Basophils % 0.3 Nucleated Red Blood Cells % 0.0 Neutrophils # 6.4 Lymphocytes # 1.9 Monocytes # 0.8 Eosinophils # 0.1 Basophils # 0.0 Nucleated Red Blood Cells # 0.0 Sodium Level 135 Potassium Level 3.9 Chloride Level 105 Carbon Dioxide Level 24 Anion Gap 10 Blood Urea Nitrogen 6 L Creatinine 0.73 Glucose Level 92 # Calcium Level 7.9 L Phosphorus Level 3.7 Magnesium Level 2.2 Medications Medications Current Medications Sodium Chloride (NS) 1,000 ml @ 100 mls/hr Q10H IV Last administered on 01:48; Admin Dose 100 MLS/HR; Start 10/03/16 at 09:41 Ondansetron HCl (Zofran Inj) 4 mg Q6H PRN IV NAUSEA AND/OR VOMITING Last administered on 10/05/16 17:56; Admin Dose 4 MG; Start 10/03/16 at 10:00 Acetaminophen (Tylenol Tab) 650 mg Q6H PRN PO PAIN LEVEL 1-3 OR FEVER Last administered on 10/06/16 02:28; Admin Dose 650 MG; Start 10/03/16 at 10:00 Morphine Sulfate (morphine) 2 mg Q4H PRN IV SEVERE PAIN LEVEL 7-10 Last administered on 10/06/16 01:19; Admin Dose 2 MG; Start 10/03/16 at 10:00 Magnesium Hydroxide (Milk Of Mag) 30 ml DAILY PRN PO CONSTIPATION Last administered on 10/05/16 20:19; Admin Dose 30 ML; Start 10/03/16 at 10:00 Famotidine 20 mg 20 mg Q12 PO Last administered on 10/06/16 20:24; Admin Dose 20 MG; Start 10/03/16 at 21:00 Piperacillin Sod/ Tazobactam Sod (Zosyn 3.375gm/ 100 ml (Pmx)) 100 ml @ 200 mls /hr Q8 IVPB Last administered on 10/07/16 06:20; Admin Dose 200 MLS/HR; Start 10/03/16 at 14:00 Diagnostic Test (Pha) (Accu-Chek) 1 ea 02 XX Last administered on 10/06/16 01: 20; Admin Dose 1 EA; Start 10/04/16 at 02:00 Miscellaneous Information 1 ea NOTE XX ; Start 10/03/16 at 12:00 Glucose (Glutose) 15 gm Q15M PRN PO DECREASED GLUCOSE; Start 10/03/16 at 12:00 Glucose (Glutose) 22.5 gm Q15M PRN PO DECREASED GLUCOSE; Start 10/03/16 at 12: 00 Dextrose (D50w Syringe) 25 ml Q15M PRN IV DECREASED GLUCOSE; Start 10/03/16 at 12:00 Dextrose (D50w Syringe) 50 ml Q15M PRN IV DECREASED GLUCOSE; Start 10/03/16 at 12:00 Glucagon (Glucagen) 1 mg Q15M PRN IM DECREASED GLUCOSE; Start 10/03/16 at 12:00 Glucose (Glutose) 15 gm Q15M PRN BUCCAL DECREASED GLUCOSE; Start 10/03/16 at 12 :00 Enoxaparin Sodium (Lovenox) 40 mg DAILY SC Last administered on 10/06/16 10:01 ; Admin Dose 40 MG; Start 10/05/16 at 09:00 Insulin Glargine (Lantus) 24 unit DAILY@20 SC Last administered on 10/06/16 20 :39; Admin Dose 24 UNIT; Start 10/04/16 at 20:00 Mupirocin 1 applic 1 applic BID TOP Last administered on 10/06/16 20:24; Admin Dose 1 APPLIC; Start 10/05/16 at 11:00 Vancomycin HCl/ Sodium Chloride (Vancocin/NS) 250 ml @ 83.333 mls/ hr Q8H IVPB Last administered on 10/07/16 02:05; Admin Dose 83.333 MLS/HR; Start at 18:00 Acetaminophen/ Hydrocodone Bitart ([place] (5/325)) 1 tab Q4 PRN PO MODERATE PAIN LEVEL 4-6 Last administered on 10/07/16 06:25; Admin Dose 1 TAB; Start at 02:00 HERMILA MACK NP Oct 07, 2016 09:53
--- NOTE | 2016-10-07 10:45 | PDOCDIS ---
Discharge Instructions DIAGNOSIS Discharge Diagnosis: Abdominal wall cellulitis. Suprapubic abscess. CONDITION Patient Condition: Stable HOME CARE INSTRUCTIONS: Special Diet: Carb Controlled FOLLOW UP/APPOINTMENTS Appointments Robin Colon MD Specialty: Internal Medicine Office Address: [address] [place] [address] [place], [place] [id number] Office OTHER ORDERS: Other Orders: 1. Take medications as per prescription. Complete 2 weeks course of antibiotics. Check your blood sugars 3 times a day. 2. Carbohydrate controlled diet. 3. Local wound care as instructed. 4. Activities as tolerated. 5. Follow-up with your primary care physician in 2 weeks. If you do not have a primary care physician, please call Dr. Robin Colon's office. 6. Please go to the nearest emergency room if you have worsening secretions from the wound, significant pain despite pain medications, persistent fevers, or any other unusual signs/symptoms. HERMILA MACK NP Oct 07, 2016 10:45
[2016-10-07] MEDS ORDERED: CLIN-73 PO (10:47)
[2016-10-07] MEDS ORDERED: LANT3I SC (10:47)
[2016-10-07] MEDS ORDERED: NOVO3I SC (10:47)
[2016-10-07] MEDS ORDERED: MUPI22OI2 TOP (10:47)
[2016-10-07] MEDS ORDERED: LINA5TAB PO (10:49)
[2016-10-07] MEDS ORDERED: METF500T4 PO (10:49)
[2016-10-07] MEDS ORDERED: HYDR-906 PO (10:51)
[2016-10-07] MEDS: ENOXAPARIN 40 MG/0.4 ML SYG SC SCH (11:33)
--- NOTE | 2016-10-07 12:27 | DS ---
DATE OF ADMISSION: 10/03/2016 DATE OF DISCHARGE: 10/07/2016 FINAL DIAGNOSES: 1. Sepsis secondary to underlying suprapubic abscess and left abdominal wall cellulitis. 2. Suprapubic abscess. 3. Abdominal wall cellulitis. 4. Spontaneous . 5. Type 2 diabetes, uncontrolled. 6. Morbid obesity. 7. 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 CONSULTATIONS: 1. Dr. Levi Sepulveda, general surgery. 2. Dr. Beatriz Catherine, PROFESSOR OF ART. 3. Dr. Thomas Milan, infectious diseases. HOSPITAL COURSE: This is a 26-year-old female with past medical history of type 2 DM and morbid obesity who came to the emergency room with chief complaint of left groin area and perineal redness with a small lesion in the perineal area that has spontaneously drained out fluid. The patient verbalized that she has been having fevers and left groin area erythema since . The patient tried [id number] Tylenol and ibuprofen with minimal relief. The patient also passed out some tissue through her vagina on the day of admission when she went to the restroom, and she collected it and brought it to the hospital. The patient was having irregular menstrual periods. The patient was unaware if she was . In the emergency room, the patient was noticed to have leukocytosis with a WBC of 17.2, and she was febrile with a temperature 101.3 Fahrenheit. The patient underwent a CT scan of the abdomen and pelvis that showed diffuse soft tissue infiltration within the left lower quadrant abdominal pelvic wall and inguinal regions suggestive of cellulitis. The patient was noticed to have a beta hCG of 343.8. The patient underwent an obstetrical ultrasound that showed no evidence of intrauterine gestation. The patient underwent a soft tissue ultrasound that showed a small suprapubic fluid collection suggestive of an abscess. She was treated with IV vancomycin and Zosyn in the emergency room along with analgesics. The patient was admitted to inpatient setting for further treatment and evaluation. A general surgery and infectious disease consult was called. The patient's abdominal wound culture showed positive MRSA and coagulase negative staph. The patient was evaluated by general surgery. The initial plan was to manage the patient conservatively; however, the patient continued to have fevers and persistent leukocytosis. The patient underwent an incision and drainage of a suprapubic abscess on 10/05/2016. The patient's abscess drainage culture showed positive MRSA. The patient was maintained on antibiotics as per infectious disease. Meanwhile, the patient's beta hCG was trended, and these were trending down. OB /FIELD CROP FARM WORKER evaluated the patient, and as per PROFESSOR OF ART, the patient probably had a spontaneous . The patient's expelled products from the vagina showed immature chorionic villi and acutely inflamed decidua. The patient has uncontrolled diabetes. The patient's hemoglobin A1c was more than 11. The patient was only taking biguanides and dipeptidyl peptidase-4 inhibitors at home. It was suspected that the patient's blood glucose control was inadequate that was causing her recurrent cellulitis. The patient was started on sliding scale insulin along with basal insulin and Lantus insulin. The patient was seen by diabetic education, and the patient was instructed on insulin injections and dietary restrictions. The patient was morbidly obese with a BMI of 40.7 kilograms per meter squared. The patient was advised on weight reduction. The patient also had MRSA colonization of the nares; hence, the patient was started on Bactroban cream. The patient had a stable hospital course. The patient was cleared by consultants to be discharged home. The patient remained afebrile for more than 24 hours. The patient's leukocytosis has been resolved. DISCHARGE DISPOSITION AND PLAN: The patient will be discharged home today. The patient was instructed to take medications as per prescription and to complete a 2-week course of antibiotics. She was instructed to check blood sugars 3 times a day. The patient was instructed to follow a carbohydrate controlled diet. She was instructed to follow local wound care as instructed. The patient was instructed to resume activities as tolerated. The patient was instructed to follow up with primary care physician and, if she does not have a primary care physician, to please call Dr. Robin Colon's office. The patient was instructed to go to the nearest emergency room if she has worsening of secretions from the wound, significant pain despite medications, persistent fevers, or any other unusual signs or symptoms. The patient verbalized understanding of her discharge instructions. CONDITION AT DISCHARGE: Stable. DISCHARGE MEDICATIONS: 1. Clindamycin 300 mg p.o. q. 8 hours x14 days. 2. Section 5/325, one tablet p.o. q. 6 hours p.r.n. pain (#14 tablets). 3. NovoLog insulin 8 units subcutaneously with meals. 4. Lantus insulin 24 units subcutaneously at bedtime. 5. Tradjenta 5 mg p.o. daily. 6. Metformin 500 mg p.o. b.i.d. with meals. 7. Bactroban 2%, 1 application to both nares b.i.d. x7 days. PERTINENT LABORATORY AND DIAGNOSTIC DATA: 1. Incision and drainage of suprapubic abscess on 10/05/2016. 2. Abdominal wound culture positive for MRSA and coagulase negative Staphylococcus. 3. Pubic abscess culture positive for MRSA. 4. Methicillin-resistant Staphylococcus aureus screening of the nares, positive. 5. Latest CBC: WBC 9.4, hemoglobin 10.7, hematocrit 32.1, platelet count of 206. 6. Latest BMP: Sodium 135, potassium 3.9, chloride 105, carbon dioxide 24, anion gap 10, BUN 6, creatinine 0.72, glucose 90, calcium 7.9, phosphorus 3.7, magnesium 2.0. 7. Hemoglobin A1c 11.4. 8. Fasting lipid panel: Triglycerides 116, total cholesterol 95, LDL 28, HDL 44. At this time, we would like to thank all the consultants for seeing the patient , doing the necessary procedures, and providing clinical recommendations. The case and management of this patient was fully discussed with Dr. Lea. Approximately 40 minutes was spent on coordinating discharge on this patient. HERMILA LEA MD, AM/SYLVIA Conf#: [id number] DID#: [id number] [facility]
--- NOTE | 2016-10-07 12:43 | CONS ---
Date/Time of Note Date/Time of Note DATE: 10/07/16 TIME: 12:37 Assessment/Plan Assessment/Plan Chief Complaint/Hosp Course SUBJECTIVE: The patient is awake. Sitting in the chair. Looks comfortable. Denies pain. LABORATORY DATA: WBC 9.4 MICROBIOLOGY: Blood culture on admission grew staph species. Nares swab came back positive for MRSA. Abdominal wound drainage growing Staphylococcus aureus , preliminary. Repeat blood cultures, preliminary negative. ANTIMICROBIALS: The patient is on: 1. IV vancomycin. 2. Topical Bactroban to nares. 3. Zosyn. PHYSICAL EXAMINATION: GENERAL: Morbidly obese young woman who is alert, in no distress. HEENT: Head atraumatic, normocephalic. Sclerae anicteric. Buccal mucosa pink. NECK: Supple. CHEST: Rise symmetrical. Breath sounds clear. HEART: S1, S2. ABDOMEN: Soft, bowel sounds present. EXTREMITIES: Without cyanosis. ASSESSMENT: 1. Systemic inflammatory response syndrome with fevers and leukocytosis secondary to #2. 2. Suprapubic abscess with left abdominal wall cellulitis. Cultures of the fluid growing Staphylococcus aureus, preliminary. 3. Staphylococcus bacteremia, possibly contaminant. 4. Morbid obesity. 5. Diabetes. PLAN: The patient remains stable on appropriate antibiotics. Status Post I and D. We will follow surgical recommendations. Pain management. Anticipate DC Home on Abx P.O. Clindamycin. staff. Problems: Consultation Date/Type/Reason Admit Date/Time Oct 03, 2016 at 05:27 Initial Consult Date 10/03/16 Type of Consultation: ID Exam/Review of Systems Vital Signs Vitals Vital Signs Date Time Temp Pulse Resp B/P Pulse Ox O2 Delivery O2 Flow Rate FiO2 10/07/16 07:53 98.6 89 18 103/58 96 10/05/16 17:07 Room Air Intake and Output 10/06/16 10/06/16 10/07/16 15:00 23:00 07:00 Intake Total 3190 ml 2500 ml Output Total 600 ml 1500 ml Balance 2590 ml 1000 ml Results Result Diagram: 10/07/16 0605 10/07/16 0605 Results 24 hrs Laboratory Tests Test 10/06/16 20:30 10/07/16 06:05 10/07/16 07:58 10/07/16 12:05 Bedside Glucose 115 121 139 White Blood Count 9.4 # Red Blood Count 3.62 L Hemoglobin 10.7 L Hematocrit 32.1 L Mean Corpuscular Volume 88.7 Mean Corpuscular Hemoglobin 29.6 Mean Corpuscular Hemoglobin Concent 33.3 Red Cell Distribution Width 12.5 Platelet Count 206 Mean Platelet Volume 11.4 H Neutrophils % 68.3 Lymphocytes % 20.0 Monocytes % 8.0 Eosinophils % 0.5 Basophils % 0.3 Nucleated Red Blood Cells % 0.0 Neutrophils # 6.4 Lymphocytes # 1.9 Monocytes # 0.8 Eosinophils # 0.1 Basophils # 0.0 Nucleated Red Blood Cells # 0.0 Sodium Level 135 Potassium Level 3.9 Chloride Level 105 Carbon Dioxide Level 24 Anion Gap 10 Blood Urea Nitrogen 6 L Creatinine 0.73 Glucose Level 92 # Calcium Level 7.9 L Phosphorus Level 3.7 Magnesium Level 2.2 Medications Medications Current Medications Sodium Chloride (NS) 1,000 ml @ 100 mls/hr Q10H IV Last administered on 01:48; Admin Dose 100 MLS/HR; Start 10/03/16 at 09:41 Ondansetron HCl (Zofran Inj) 4 mg Q6H PRN IV NAUSEA AND/OR VOMITING Last administered on 10/05/16 17:56; Admin Dose 4 MG; Start 10/03/16 at 10:00 Acetaminophen (Tylenol Tab) 650 mg Q6H PRN PO PAIN LEVEL 1-3 OR FEVER Last administered on 10/06/16 02:28; Admin Dose 650 MG; Start 10/03/16 at 10:00 Morphine Sulfate (morphine) 2 mg Q4H PRN IV SEVERE PAIN LEVEL 7-10 Last administered on 10/06/16 01:19; Admin Dose 2 MG; Start 10/03/16 at 10:00 Magnesium Hydroxide (Milk Of Mag) 30 ml DAILY PRN PO CONSTIPATION Last administered on 10/05/16 20:19; Admin Dose 30 ML; Start 10/03/16 at 10:00 Famotidine 20 mg 20 mg Q12 PO Last administered on 10/07/16 09:41; Admin Dose 20 MG; Start 10/03/16 at 21:00 Piperacillin Sod/ Tazobactam Sod (Zosyn 3.375gm/ 100 ml (Pmx)) 100 ml @ 200 mls /hr Q8 IVPB Last administered on 10/07/16 06:20; Admin Dose 200 MLS/HR; Start 10/03/16 at 14:00 Diagnostic Test (Pha) (Accu-Chek) 1 ea 02 XX Last administered on 10/06/16 01: 20; Admin Dose 1 EA; Start 10/04/16 at 02:00 Miscellaneous Information 1 ea NOTE XX ; Start 10/03/16 at 12:00 Glucose (Glutose) 15 gm Q15M PRN PO DECREASED GLUCOSE; Start 10/03/16 at 12:00 Glucose (Glutose) 22.5 gm Q15M PRN PO DECREASED GLUCOSE; Start 10/03/16 at 12: 00 Dextrose (D50w Syringe) 25 ml Q15M PRN IV DECREASED GLUCOSE; Start 10/03/16 at 12:00 Dextrose (D50w Syringe) 50 ml Q15M PRN IV DECREASED GLUCOSE; Start 10/03/16 at 12:00 Glucagon (Glucagen) 1 mg Q15M PRN IM DECREASED GLUCOSE; Start 10/03/16 at 12:00 Glucose (Glutose) 15 gm Q15M PRN BUCCAL DECREASED GLUCOSE; Start 10/03/16 at 12 :00 Enoxaparin Sodium (Lovenox) 40 mg DAILY SC Last administered on 10/07/16 11:33 ; Admin Dose 40 MG; Start 10/05/16 at 09:00 Insulin Glargine (Lantus) 24 unit DAILY@20 SC Last administered on 10/06/16 20 :39; Admin Dose 24 UNIT; Start 10/04/16 at 20:00 Mupirocin 1 applic 1 applic BID TOP Last administered on 10/07/16 09:42; Admin Dose 1 APPLIC; Start 10/05/16 at 11:00 Vancomycin HCl/ Sodium Chloride (Vancocin/NS) 250 ml @ 83.333 mls/ hr Q8H IVPB Last administered on 10/07/16 11:27; Admin Dose 83.333 MLS/HR; Start at 18:00 Acetaminophen/ Hydrocodone Bitart (Guild (5/325)) 1 tab Q4 PRN PO MODERATE PAIN LEVEL 4-6 Last administered on 10/07/16 06:25; Admin Dose 1 TAB; Start at 02:00 MELCHOR VANG NP Oct 07, 2016 12:43
== END 2016-10-07 15:25 | disposition home or self-care (01) | DRG 872 ==
LOC: FTE 00:25 → MS2 05:27
PROVIDERS: ADMIT Family Medicine; ATTEND Family Medicine
PROC: 0H97XZX Drainage of Abdomen Skin, External Approach, Diagnostic (ICD-10-PCS; principal; 2016-10-05 15:00)
DX: A41.02 Sepsis due to Methicillin resistant Staphylococcus aureus (principal); E11.65 Type 2 diabetes mellitus with hyperglycemia; Z68.41 Body mass index [BMI] 40.0-44.9, adult; L02.211 Cutaneous abscess of abdominal wall; L03.311 Cellulitis of abdominal wall; O03.9 Complete or unspecified spontaneous abortion without complication; E66.01 Morbid (severe) obesity due to excess calories; B95.62 Methicillin resistant Staphylococcus aureus infection as the cause of diseases classified elsewhere; Z79.84 Long term (current) use of oral hypoglycemic drugs
CPT/HCPCS: 36415; 71010; 74177; 76536; 76801; 76817; 80048; 80053; 80061; 80202; 81001; 82962; 83036; 83605; 83690; 83735; 84100; 84439; 84443; 84702; 85025; 85610; 85730; 86900; 86901; 87040; 87070; 87075; 87081; 87086; 88305; 93005; 96361; 96374; 96375; 96376; J1650; J1815; J2250; J2270; J2405; J2543; J3010; J3370; J7030; J7050; Q9967

== ENCOUNTER 2017-06-29 00:51 | Emergency (ER) | END 2017-06-29 03:56 | disposition left against medical advice (07) ==

== ENCOUNTER 2017-08-06 11:46 | Emergency (ER) | END 2017-08-06 15:00 | disposition home or self-care (01) ==

== ENCOUNTER 2017-08-23 09:31 | Emergency (ER) | END 2017-08-23 12:49 | disposition home or self-care (01) ==